=== PATIENT | female | born 1965 | race Caucasian/White ===

== ENCOUNTER 2019-07-17 17:04 | Inpatient (IN) ==
--- NOTE | 2019-07-17 17:27 | XRay Report ---
XR chest 1V portable CLINICAL HISTORY: Sepsis COMPARISON STUDY: No previous studies for comparison. FINDINGS: Minimal right upper lobe parenchymal infiltrate. Lungs otherwise appear clear. Diaphragms a re smooth. No significant cardiac enlargement. IMPRESSION: Minimal right upper lobe parenchymal infiltrate. The above report was generated using voice recognition software. It may contain grammatical, syntax or spelling errors. Electronically signed by: Frederick Ramirez M.D. 07/17/2019 5:26 PM
[2019-07-17] MEDS ORDERED: SODIUM CHLORIDE 0.9% 1000ML 1,000 ML IV ONE ×2 (18:06)
[2019-07-17 18:22] LABS: Basophils # (auto) 0.02 K/uL (0-0.2); Basophils % (auto) 0.2 %; Eosinophils # (auto) 0.01 K/uL (0-0.5); Eosinophils % (auto) 0.1 %; Hemoglobin 13.6 g/dL (12.0-16.0); Immature Granulocytes # (auto) 0.12 K/uL (0.00-0.02); Immature Granulocytes % (auto) 0.9 %; Lymphocytes # (auto) 1.15 K/uL (1.2-3.4); Mean Corpuscular Volume 94.1 fL (80-100); Mean Platelet Volume 10.2 fL (7.4-10.4); Neutrophils % (auto) 82.8 %; Platelet Count 147 K/uL (130-400); RDW Coefficient of Variation 15.2 % (11.5-14.5); RDW Standard Deviation 52.8 fL (36.4-46.3); Red Blood Count 4.25 M/uL (4.2-5.4)
[2019-07-17] MEDS ORDERED: ALBUT/IPRATROP 3MG/0.5MG NEB 3 ML VIAL NEB STA (18:33)
[2019-07-17 18:42] LABS: Albumin Level 3.5 gm/dl (3.4-5.0); BUN Creatinine Ratio 22.3 (10-20); Calcium 9.2 mg/dl (8.5-10.1); Creatinine Clr Calc Pharmacy 33.9 ml/min; Est GFR (African American) 41.5; Est GFR (Non-African American) 35.8; Potassium 5.2 mmol/L (3.5-5.1)
[2019-07-17 18:45] LABS: Albumin Globulin Ratio 0.9 (0.9-2); Bilirubin,Total 0.3 mg/dl (0.2-1); Globulin 3.9 gm/dl (2.5-4.0); Total Protein 7.4 gm/dl (6.4-8.2)
[2019-07-17] MEDS ORDERED: AZITHROMYCIN 500 MG in DEXTROSE 5% 250 ML IV ONE (19:09)
[2019-07-17] MEDS ORDERED: cefTRIAXone SODIUM 2,000 MG/70 ML BAG IV STA (19:09)
[2019-07-17] MEDS ORDERED: MoRPHine SULFATE 4 MG/ML 1 ML CARP\\VIAL IV STA (19:29)
[2019-07-17] MEDS ORDERED: ACETAMINOPHEN 325 MG TAB PO STA (19:29)
[2019-07-17] MEDS ORDERED: SODIUM CHLORIDE 0.9% 1000ML 1,000 ML IV SCH (20:45)
--- NOTE | 2019-07-17 20:53 | Emergency Department Note ---
Entered by Gretchen Lawrence acting as a scribe for Chevy Mack MD History of Present Illness General Chief complaint: Referred by Doctor Stated complaint: HEART RATE 120, SOB, DIZZY Time Seen by Provider: 07/17/19 17:11 Source: patient History of Present Illness Onset (ago): minute(s) (prior to arrival) Location: chest Pain Consistency: + other (episode) Maximum Pain Intensity: 8 Quality: + other (referral by doctor) Relieved By: + medication (Ibuprofen) Associated symptoms: + denies other symptoms (leg swelling), + cough, + fever/chills (Positive chills. Negative fever. ), + nausea/vomiting (Positive nausea. Negative vomiting. ), + shortness of breath and + other (sore throat, abdominal pain) The patient is a 53 female w/ PMHx HTN, HLD, TIA, Depression, Bipolar, Diabetes, dementia, congenital abnormality, and GERD who presents to the ED w/ CC of an episode of a referral occurring prior to arrival. The patient states that she was recently around her daughter who had pneumonia. She states that today she developed a cough and shortness of breath. She notes that she felt fine 2 days ago when she walked around the [facility] 10 hours. She reports that today though, she was short of breath even just lying on the couch. She notes that today she met with Dr. Gayle for an echo and mentioned her symptoms. She reports that he sent her here then. The patient complains of a sore throat, abdominal pain, nausea, and chills. The patient notes that she has been taking Ibuprofen with mild relief. The patient denies missing any medications, changes to her medications, leg swelling, a history of pulmonary disease, vomiting, and fever. Home Medications Home Medications Medication Instructions Recorded Confirmed Type aspirin [Aspirin Low Dose] 81 mg PO DAILY 01/29/19 07/17/19 History atorvastatin [Lipitor] 80 mg PO QAM 01/29/19 07/17/19 History cholecalciferol (vitamin D3) 2,000 unit PO QAM 01/29/19 07/17/19 History [Vitamin D3] citalopram [Celexa] 20 mg PO QAM 01/29/19 07/17/19 History gabapentin 100 mg PO BID 01/29/19 07/17/19 History glipizide 5 mg PO QAM 01/29/19 07/17/19 History lisinopril 40 mg PO QAM 01/29/19 07/17/19 History metformin 850 mg PO BID 01/29/19 07/17/19 History quetiapine [Seroquel] 50 mg PO HS 01/29/19 07/17/19 History Advair Diskus 1 puff INHALATION BID 07/17/19 07/17/19 History gabapentin 200 mg PO HS 07/17/19 07/17/19 History nicotine [Nicoderm CQ] 1 patch TRANSDERMAL DAILY 07/17/19 07/17/19 History cefdinir 300 mg PO Q12H 10 Days #20 cap 07/19/19 Rx Allergies Allergy/AdvReac Type Severity Reaction Status Date / Time sulfamethoxazole Allergy Severe Anaphylaxis Verified 07/17/19 18:25 [From Bactrim] trimethoprim [From Bactrim] Allergy Severe Anaphylaxis Verified 07/17/19 18:25 latex Allergy Intermediate LOCALIZED Verified 07/17/19 18:25 HIVES Past Med/Surg History Medical History Anemia Anxiety Bipolar disorder Blindness LEGALLY BLIND Cancer SKIN CANCER Cardiac murmur POSSIBLE Depression Diabetes mellitus, type 2 NIDDM Dysphagia BASELINE FOR 3 YEARS. NO KNOWN HISTORY OF STROKE. Facial droop BASELINE FOR 3 YEARS. NO KNOWN HISTORY OF A STROKE Fusion of spine C4-C5. FUL ROM GERD (gastroesophageal reflux disease) History of Leal's palsy History of anesthesia reaction BRONCHOSPASMS --> PATIENT WAS INTUBATED FOR SEVERAL DAYS AFTER ORIF LEFT ARM (~2017 AT [facility]) History of dementia EARLY AGE ONSET. NO MEDICATIONS. PATIENT A&O X3. Hx of congenital abnormality LEFT ARM DEFECT Hyperlipidemia Hypertension Transient ischemic attack (TIA) RECENT BRAIN MRI AND NEUROLOGIST APPOINTMENT ([facility], DR. JOSEMANUEL MIGUEL. BRAIN MRI AT [facility] 2018) Surgical History History of bilateral tubal ligation History of section X2 History of dilatation and curettage UTERINE THERMAL ABLATION History of open reduction and internal fixation (ORIF) procedure LEFT ARM History of surgery on arm MULTIPLE SURGERIES ON LEFT ARM. 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 and A total of 10 systems reviewed and were otherwise negative Physical Exam Vital Signs Vital Signs - 24 hr 07/17/19 17:07 07/17/19 17:40 07/17/19 18:42 Temperature 37.4 C Temperature Source Oral Sepsis Recent Fever Within 48 Hours No Sepsis New/Unexplained Change in Mental Status No Sepsis Action Taken by Nursing No Action Required Pulse Rate 122 H Pulse Rate [Right Finger] Pulse Rhythm [Right Finger] Pulse Strength [Right Finger] Respiratory Rate 16 20 Respiratory Effort / Characteristics Non-Labored Spontaneous Non-Labored Spontaneous Respiratory Depth Respiratory Pattern Blood Pressure 76/53 L Blood Pressure [Right Arm] Blood Pressure Mean 60 Blood Pressure Mean [Right Arm] Blood Pressure Position Sitting Pulse Oximetry 94 93 94 Oxygen Delivery Method Room Air Room Air Room Air Oxygen Flow Rate 07/17/19 19:11 07/17/19 19:20 07/17/19 19:23 Temperature Temperature Source Sepsis Recent Fever Within 48 Hours Sepsis New/Unexplained Change in Mental Status Sepsis Action Taken by Nursing Pulse Rate Pulse Rate [Right Finger] 118 H Pulse Rhythm [Right Finger] Regular Pulse Strength [Right Finger] Normal Respiratory Rate 20 Respiratory Effort / Characteristics Non-Labored Spontaneous Respiratory Depth Normal Respiratory Pattern Regular Blood Pressure Blood Pressure [Right Arm] 170/92 H Blood Pressure Mean Blood Pressure Mean [Right Arm] 118 Blood Pressure Position Pulse Oximetry 100 87 L 95 Oxygen Delivery Method Room Air Room Air Nasal Cannula Oxygen Flow Rate 2 GENERAL: Well appearing, well nourished, NAD, non-toxic. EYE EXAM: Normal conjunctiva. PERRL, no anisocoria and EOM's grossly intact w/o pain. OROPHARYNX: Moist mucous membranes. Grossly normal dentition. NECK: Supple, no nuchal rigidity, no adenopathy, non-tender. No signs of meningismus. LUNGS: Clear to auscultation. Normal chest wall mechanics. HEART: Tachycardic and regular, no MRG. ABDOMEN: Abdomen soft, non-tender, normo-active bowel sounds, no masses, no rebound or guarding. BACK: No CVA TTP. SKIN: No rashes and no bruising. UPPER EXTREMITIES: Congenital shortened left upper extremity. Contracted right upper extremity. LOWER EXTREMITIES: No pitting edema. No calf pain. Negative saqib's sign. NEURO EXAM: A&O x3, cranial nerves II-XII grossly intact, normal speech, moves all 4 extremities on command w/o issue. Course 171: Past medical records reviewed. The patient was evaluated in room B12B. A complete history and physical exam was performed. 1920: I reevaluated the patient and updated her on her test results. I discussed the treatment plan with her. She verbally agrees and understands. 1931: I discussed the patient's case with Dr. Syed Manley. He will evaluate the patient for further management. Consultations Consultation #1: I discussed the patient's case with Dr. Syed Manley. He will evaluate the patient for further management. Time: 19:32 Administered Medications Discontinued Medications Acetaminophen (Tylenol) 650 mg PO NOW STA Stop: 07/17/19 19:30 Last Admin: 07/17/19 19:37 Dose: 650 mg Documented by: [id number] Acetaminophen (Tylenol) 650 mg PO Q4H PRN PRN Reason: Pain or Fever Stop: 08/16/19 21:48 Last Admin: 07/19/19 04:04 Dose: 650 mg Documented by: [id number] Admin: 07/18/19 15:03 Dose: 650 mg Documented by: [id number] Admin: 07/18/19 07:34 Dose: 650 mg Documented by: [id number] Admin: 07/18/19 03:13 Dose: 650 mg Documented by: [id number] Albuterol (Duoneb) 6 ml NEB NOW STA Stop: 07/17/19 18:34 Last Admin: 07/17/19 18:40 Dose: 6 ml Documented by: [id number] Aspirin (Ecotrin Ectab) 81 mg PO DAILY [facility] Stop: 08/17/19 08:59 Last Admin: 07/19/19 07:43 Dose: 81 mg Documented by: [id number] Admin: 07/18/19 07:37 Dose: 81 mg Documented by: [id number] Atorvastatin Calcium ([facility]itor) [facility] [place] Stop: 08/17/19 08:59 Last Admin: 07/19/19 07:41 Dose: 80 mg Documented by: [id number] Admin: 07/18/19 07:36 Dose: 80 mg Documented by: [id number] Citalopram Hydrobromide (Celexa) 20 [facility] [place] Stop: 08/17/19 08:59 Last Admin: 07/19/19 07:42 Dose: 20 mg Documented by: [id number] Admin: 07/18/19 07:36 Dose: 20 mg Documented by: [id number] Furosemide (Lasix) 40 mg IV NOW [facility] Stop: 07/19/19 06:45 Last Admin: 07/19/19 08:25 Dose: Not Given Documented by: [id number] Gabapentin (Neurontin) 100 mg PO BID@0900,1200 [facility] Stop: 08/17/19 08:59 Last Admin: 07/19/19 12:28 Dose: 100 mg Documented by: [id number] Admin: 07/19/19 07:43 Dose: 100 mg Documented by: [id number] Admin: 07/18/19 12:06 Dose: 100 mg Documented by: [id number] Admin: 07/18/19 07:38 Dose: 100 mg Documented by: [id number] Gabapentin (Neurontin) [address] [facility] Stop: 08/16/19 22:59 Last Admin: 07/18/19 19:26 Dose: 200 mg Documented by: [id number] Admin: 07/17/19 23:00 Dose: 200 mg Documented by: [id number] Sodium Chloride (Nss 1000ml) 1,000 mls @ 999 mls/hr IV .Q1H1M ONE Stop: 07/17/19 19:06 Last Admin: 07/17/19 18:15 Dose: Not Given Documented by: [id number] Sodium Chloride (Nss 1000ml) 1,000 mls @ 999 mls/hr IV .Q1H1M ONE Stop: 07/17/19 19:06 Last Infusion: 07/17/19 19:58 Dose: 0 mls/hr Documented by: [id number] Admin: 07/17/19 18:15 Dose: 500 mls/hr Documented by: [id number] Azithromycin 500 mg/ Dextrose 255 mls @ 125 mls/hr IV ONE ONE Stop: 07/17/19 21:11 Last Infusion: 07/17/19 22:20 Dose: 0 mls/hr Documented by: [id number] Admin: 07/17/19 19:59 Dose: 125 mls/hr Documented by: [id number] Ceftriaxone Sodium (Rocephin) 2,000 mg in 70 mls @ 140 mls/hr IV NOW STA Stop: 07/17/19 19:38 Last Infusion: 07/17/19 19:58 Dose: 0 mls/hr Documented by: [id number] Admin: 07/17/19 19:23 Dose: 140 mls/hr Documented by: [id number] Sodium Chloride (Nss 1000ml) 1,000 mls @ 500 mls/hr IV .Q2H [facility] Stop: 07/17/19 22:44 Last Infusion: 07/18/19 00:15 Dose: 0 mls/hr Documented by: [id number] Admin: 07/17/19 20:54 Dose: 500 mls/hr Documented by: [id number] Sodium Chloride (Nss 1000ml) 1,000 mls @ 125 mls/hr IV .Q8H [facility] Stop: 08/16/19 21:48 Last Infusion: 07/19/19 04:10 Dose: 0 mls/hr Documented by: [id number] Infusion: 07/19/19 03:57 Dose: 0 mls/hr Documented by: [id number] Admin: 07/19/19 01:39 Dose: 125 mls/hr Documented by: [id number] Infusion: 07/19/19 01:36 Dose: 0 mls/hr Documented by: [id number] Admin: 07/18/19 13:42 Dose: 125 mls/hr Documented by: [id number] Infusion: 07/18/19 13:41 Dose: 0 mls/hr Documented by: [id number] Admin: 07/18/19 05:41 Dose: 125 mls/hr Documented by: [id number] Infusion: 07/18/19 05:41 Dose: 125 mls/hr Documented by: [id number] Admin: 07/17/19 22:47 Dose: 125 mls/hr Documented by: [id number] Doxycycline Hyclate 100 mg/ (Dextrose) 110 mls @ 50 mls/hr IV BID [facility] Stop: 07/18/19 09:01 Last Infusion: 07/18/19 09:51 Dose: 0 mls/hr Documented by: [id number] Admin: 07/18/19 07:39 Dose: 50 mls/hr Documented by: [id number] Ceftriaxone Sodium 1,000 mg/ (Dextrose) 50 mls @ 100 mls/hr IV Q24H [facility]; Protocol Stop: 07/25/19 18:59 Last Infusion: 07/18/19 19:12 Dose: 0 mls/hr Documented by: [id number] Admin: 07/18/19 18:31 Dose: 100 mls/hr Documented by: [id number] Magnesium Sulfate/Dextrose (Magnesium Sulfate / D5w) 1 gm in 100 mls @ 100 mls/hr IV ONE ONE Stop: 07/18/19 06:27 Last Infusion: 07/18/19 06:43 Dose: 0 mls/hr Documented by: [id number] Admin: 07/18/19 05:40 Dose: 100 mls/hr Documented by: [id number] Sodium Chloride (Nss 1000ml) 1,000 mls @ 999 mls/hr IV .Q1H1M ONE Stop: 07/18/19 12:37 Last Infusion: 07/18/19 13:07 Dose: 0 mls/hr Documented by: [id number] Admin: 07/18/19 12:06 Dose: 999 mls/hr Documented by: [id number] Furosemide 20 mg/ Syringe 2 mls @ 4 mls/min IV TODAY@0700 ONE Stop: 07/19/19 07:01 Last Admin: 07/19/19 07:37 Dose: 4 mls/min Documented by: [id number] Insulin Aspart (Novolog Flexpen) 0 units SC ACHS [facility] Stop: 08/16/19 22:59 Last Admin: 07/19/19 09:34 Dose: 1 units Documented by: [id number] Cosigned by: [id number] Admin: 07/18/19 20:25 Dose: 1 units Documented by: [id number] Cosigned by: [id number] Admin: 07/18/19 17:39 Dose: 5 units Documented by: [id number] Cosigned by: [id number] Admin: 07/18/19 12:05 Dose: 3 units Documented by: [id number] Cosigned by: [id number] Admin: 07/18/19 07:46 Dose: 1 units Documented by: [id number] Cosigned by: [id number] Admin: 07/17/19 23:06 Dose: 2 units Documented by: [id number] Cosigned by: [id number] Ipratropium [place] (Atrovent 0.02% 0.5mg/2.5ml) 0.5 mg INH Q4H PRN PRN Reason: SOB/WHEEZING Stop: 08/16/19 21:48 Last Admin: 07/19/19 03:57 Dose: 0.5 mg Documented by: [id number] Levalbuterol HCl (Xopenex 1.25mg/0.5ml Neb) 1.25 mg INH Q4H PRN PRN Reason: Shortness Of Breath Stop: 08/16/19 21:48 Last Admin: 07/19/19 03:57 Dose: 1.25 mg Documented by: [id number] Lisinopril (Zestril) 40 mg PO [facility] Stop: 08/17/19 08:59 Last Admin: 07/19/19 07:42 Dose: 40 mg Documented by: [id number] Admin: 07/18/19 07:37 Dose: 40 mg Documented by: [id number] Metoprolol Tartrate (Lopressor) 2.5 mg IV NOW STA Stop: 07/18/19 03:18 Last Admin: 07/18/19 03:22 Dose: 2.5 mg Documented by: [id number] Miscellaneous (Remove Nicoderm Patch) [address] ea N/[address] [facility] Stop: 08/17/19 20:59 Last Admin: 07/18/19 19:26 Dose: 1 ea Documented by: [id number] Morphine Sulfate (Morphine Sulfate) 4 mg IV NOW STA Stop: 07/17/19 19:30 Last Admin: 07/17/19 19:36 Dose: 4 mg Documented by: [id number] Nicotine (Nicoderm Cq) 21 mg TD DAILY [facility] Stop: 08/17/19 08:59 Last Admin: 07/19/19 07:43 Dose: 21 mg Documented by: [id number] Admin: 07/18/19 07:38 Dose: 21 mg Documented by: [id number] Quetiapine Fumarate (Seroquel) [address] [facility] Stop: 08/16/19 22:59 Last Admin: 07/18/19 19:26 Dose: 50 mg Documented by: [id number] Admin: 08/21/19 23:01 Dose: 50 mg Documented by: [id number] Fluticasone/Salmeterol (Advair Diskus 250/50) 1 puffs INH BID [facility] Stop: 08/16/19 22:59 Last Admin: 07/19/19 07:49 Dose: 1 puffs Documented by: [id number] Admin: 07/18/19 19:24 Dose: 1 puffs Documented by: [id number] Admin: 07/18/19 07:38 Dose: 1 puffs Documented by: [id number] Admin: 07/17/19 22:59 Dose: 1 puffs Documented by: [id number] Vitamin D (Vitamin D3) 2,000 units PO QAM [facility] Stop: 08/17/19 08:59 Last Admin: 07/19/19 07:42 Dose: 2,000 units Documented by: [id number] Admin: 07/18/19 07:37 Dose: 2,000 units Documented by: [id number] Medical Decision Making Differential Diagnosis Differential diagnoses includes but is not limited to pneumonia, bronchitis, COPD/Asthma exacerbation, pneumothorax, pulmonary embolism, congestive heart failure, acute coronary syndrome Medical Records Attestation: I reviewed the patient's medical records. Home Medications Current Medication List: was personally reviewed by me Laboratory Data Attestation: I reviewed the patient's lab results. Result diagrams: 07/19/19 07:09 07/19/19 07:09 Lab Results 07/17/19 07/17/19 07/17/19 Range/Units 17:52 18:09 18:09 WBC 12.80 H (4.8-10.8) K/uL RBC 4.25 (4.2-5.4) M/uL Hgb 13.6 (12.0-16.0) g/dL Hct 40.0 (37-47) % MCV 94.1 (80-100) fL MCH 32.0 (25-34) pg MCHC 34.0 (32-36) g/dL RDW Std Deviation 52.8 H (36.4-46.3) fL RDW Coeff of Wing 15.2 H (11.5-14.5) % Plt Count 147 (130-400) K/uL MPV 10.2 (7.4-10.4) fL Immature Gran % (Auto) 0.9 % Neut % (Auto) 82.8 % Lymph % (Auto) 9.0 % [place] % (Auto) 7.0 % Eos % (Auto) 0.1 % Baso % (Auto) 0.2 % Immature Gran # (Auto) 0.12 H (0.00-0.02) K/uL Neut # (Auto) 10.60 H (1.4-6.5) K/uL Lymph # (Auto) 1.15 L (1.2-3.4) K/uL [place] # (Auto) 0.90 H (0.11-0.59) K/uL Eos # (Auto) 0.01 (0-0.5) K/uL Baso # (Auto) 0.02 (0-0.2) K/uL PT Cancelled INR Cancelled APTT Cancelled PTT Ratio Cancelled Sodium (136-145) mmol/L Potassium (3.5-5.1) mmol/L Chloride (98-107) mmol/L Carbon Dioxide (21-32) mmol/L Anion Gap (3-11) BUN (7-18) mg/dl Creatinine (0.6-1.2) mg/dl Est Cr Clr Drug Dosing ml/min Est GFR ( Amer) Est GFR (Non-Af Amer) BUN/Creatinine Ratio (10-20) Glucose (70-99) mg/dl Lactate 1.9 (0.4-2.0) mmol/L Calcium (8.5-10.1) mg/dl Total Bilirubin (0.2-1) mg/dl AST (15-37) U/L ALT (12-78) U/L Alkaline Phosphatase (45-117) U/L Total Protein (6.4-8.2) gm/dl Albumin (3.4-5.0) gm/dl Globulin (2.5-4.0) gm/dl Albumin/Globulin Ratio (0.9-2) Procalcitonin 07/17/19 07/17/19 Range/Units 18:09 18:09 WBC (4.8-10.8) K/uL RBC (4.2-5.4) M/uL Hgb (12.0-16.0) g/dL Hct (37-47) % MCV (80-100) fL MCH (25-34) pg MCHC (32-36) g/dL RDW Std Deviation (36.4-46.3) fL RDW Coeff of Wing (11.5-14.5) % Plt Count (130-400) K/uL MPV (7.4-10.4) fL Immature Gran % (Auto) % Neut % (Auto) % Lymph % (Auto) % [place] % (Auto) % Eos % (Auto) % Baso % (Auto) % Immature Gran # (Auto) (0.00-0.02) K/uL Neut # (Auto) (1.4-6.5) K/uL Lymph # (Auto) (1.2-3.4) K/uL [place] # (Auto) (0.11-0.59) K/uL Eos # (Auto) (0-0.5) K/uL Baso # (Auto) (0-0.2) K/uL PT INR APTT PTT Ratio Sodium 135 L (136-145) mmol/L Potassium 5.2 H (3.5-5.1) mmol/L Chloride 103 (98-107) mmol/L Carbon Dioxide 24 (21-32) mmol/L Anion Gap 8.0 (3-11) BUN 37 H (7-18) mg/dl Creatinine 1.64 H (0.6-1.2) mg/dl Est Cr Clr Drug Dosing 33.9 ml/min Est GFR ( Amer) 41.5 Est GFR (Non-Af Amer) 35.8 BUN/Creatinine Ratio 22.3 H (10-20) Glucose 170 H (70-99) mg/dl Lactate (0.4-2.0) mmol/L Calcium 9.2 (8.5-10.1) mg/dl Total Bilirubin 0.3 (0.2-1) mg/dl AST 24 (15-37) U/L ALT 26 (12-78) U/L Alkaline Phosphatase 124 H (45-117) U/L Total Protein 7.4 (6.4-8.2) gm/dl Albumin 3.5 (3.4-5.0) gm/dl Globulin 3.9 (2.5-4.0) gm/dl Albumin/Globulin Ratio 0.9 (0.9-2) Procalcitonin Cancelled Imaging Data Radiologist's Impression: Radiology results as stated below per my review and the radiologist's interpretation: XR chest 1V portable CLINICAL HISTORY: Sepsis COMPARISON STUDY: No previous studies for comparison. FINDINGS: Minimal right upper lobe parenchymal infiltrate. Lungs otherwise appear clear. Diaphragms are smooth. No significant cardiac enlargement. IMPRESSION: Minimal right upper lobe parenchymal infiltrate. The above report was generated using voice recognition software. It may contain grammatical, syntax or spelling errors. Electronically signed by: Frederick Ramirez M.D. 07/17/2019 5:26 PM Blood Pressure Blood Pressure Findings: Elevated blood pressure Blood Pressure Disposition: Referred to patients primary care provider QUIANA Piedra The patient is a 53 female w/ PMHx HTN, HLD, TIA, Depression, Bipolar, Diabetes, dementia, congenital abnormality, and GERD who presents to the ED w/ CC of an episode of a referral occurring prior to arrival. Patient was seen and evaluated the bedside. The patient did present with concern for dehydration and shortness of breath. The patient had been at an outpatient cardiology appointment during which time she did have an echo completed and but had been referred there initially due to some EKG changes. The patient's echo reportedly was unremarkable per Dr. Gayle who completed it today. He did relate that the patient's IVC was fairly flat which would be consistent with some dehydration. The patient does have a history of smoking. Patient has been not smoking for approximately 1 week. The patient had been in the hospital visiting her daughter who had had pneumonia the patient does require a slight amount of oxygen. She was given a DuoNeb. The patient did have mild elevated BUN. The patient was ordered antibiotics for community-acquired pneumonia. Patient's chest x-ray does show a right upper lobe infiltrate. I did speak the on-call h ospitalist agreed to further evaluate treat the patient. Patient was admitted to the medicine service. Impression & Plan Community acquired pneumonia, Dyspnea Discharge Plan Visit Data *Final* Discharge Date/Time: 07/17/19 21:21 Chief Complaint: Referred by Doctor Stated Complaint: HEART RATE 120, SOB, DIZZY ED Provider: Chevy Mack Discharge Problem: Community acquired pneumonia, Dyspnea Patient Disposition: Admitted As Inpatient Discharge Instructions Interventions: ED Discharge Assessment Last Done: 07/17/19 21:21 The scribe's documentation has been prepared under my direction and personally reviewed by me in its entirety. I confirm that the note above accurately reflects all work, treatment, procedures, and medical decision making performed by me.
[2019-07-17] MEDS ORDERED: XOPENEX/ATROVENT 1.25mg/0.5MG NEB COMBO NEB PRN (21:49)
[2019-07-17] MEDS ORDERED: LEVALBUTEROL 1.25MG/0.5ML NEB INH PRN (21:49)
[2019-07-17] MEDS ORDERED: ONDANSETRON INJ 2 MG/ML 2 ML VIAL IV PRN (21:49)
[2019-07-17] MEDS ORDERED: IPRATROPIUM BROMIDE NEB SOLN 0.02% 2.5 ML VIAL INH PRN (21:49)
[2019-07-17] MEDS ORDERED: NITROGLYCERIN SL 0.4 MG/TAB TAB SL PRN (21:49)
[2019-07-17] MEDS: SODIUM CHLORIDE 0.9% 1000ML 1,000 ML IV SCH (22:47)
--- NOTE | 2019-07-17 22:47 | History and Physical Report ---
DATE OF ADMISSION: 07/17/2019 CHIEF COMPLAINT: Fever, dizziness. HISTORY OF PRESENT ILLNESS: This 53-year-old female with past medical history significant for type 2 diabetes, COPD, history of amputation of left arm, history of cervical disc disease, bipolar disorder, facial contracture, was sent by cardiology office because of having fever and tachycardia. The patient had some EKG changes, so she went to cardiology office today. An echo was done which was unremarkable, but she was tachycardic. The patient is having fever since yesterday and dizziness, not feeling well, and daughter was recently in the hospital with pneumonia.Daughter in the healthcare field. She says she did not feel short of breath. She is coughing up phlegm since yesterday and the coughing is causing some chest discomfort and rib pain. Currently, patient is tachycardic, heart rate in the 120s to 130s. Has some mild headache. No dizziness, no earache, no runny nose, no sore throat, no blurred visions. She has some dysphagia to meats because she has a narrowed trachea, No abdominal pain, no nausea, no vomiting, no diarrhea, no constipation, no blood in the stools. Normal bladder movements. No burning micturition or hematuria. No swelling in the legs, no rash. She lives with her .She quit smoking about a week ago and on nicotine patch. ALLERGIES: LATEX, SULFA ANTIBIOTICS. PAST MEDICAL HISTORY: As mentioned above. PAST SURGICAL HISTORY: , colonoscopy, left foot surgery, left arm surgery secondary to fracture. MEDICATIONS: The patient is on citalopram 20 mg p.o. daily, glipizide 5 mg p.o. daily in the morning, lisinopril 40 mg p.o. daily, metformin 850 mg p.o. b.i.d., nicotine patch 1 patch topically daily on the skin, Seroquel 50 mg p.o. at bedtime, Lipitor 80 mg p.o. daily, gabapentin 100 mg in the morning and afternoon and 200 mg at bedtime, vitamin D 800 units p.o. daily, aspirin 81 mg p.o. daily, Advair Diskus 250/50 mcg 1 puff b.i.d. FAMILY HISTORY: Significant for mother had breast cancer. SOCIAL HISTORY: , smokes an average of 1 pack a day for 35 years, quit smoking 1 week ago, and nicotine patch. Alcohol, socially drinks. No drug use. REVIEW OF SYSTEMS: As per HPI. Rest of the review of systems negative. PHYSICAL EXAMINATION: GENERAL: The patient is thin and frail, not in acute distress. VITAL SIGNS: Temperature 37.4, pulse 121, blood pressure 170/92, oxygen 95% on 2 liters. HEENT: No pallor, no icterus. Pupils equal, round, reactive to light. NECK: No JVD, no neck masses. Oral mucosa dry. CARDIOVASCULAR: S1, S2 heard. Tachycardia. No murmurs. RESPIRATORY SYSTEM: Normal AP diameter. No accessory muscle use. No wheezing, no crackles. ABDOMEN: Soft, bowel sounds present, nontender. No distention. CENTRAL NERVOUS SYSTEM: Cranial nerves II-XII grossly intact. Nonfocal. EXTREMITIES: No edema, no erythema. LABORATORY DATA: WBC 12.8, hemoglobin 13.6, hematocrit 40, platelets 147. Sodium 135, potassium 5.2, chloride 103, bicarbonate 24, BUN 37, creatinine 1.64, serum glucose 170. Lactate 1.9, calcium 9.2, total bilirubin 0.3, AST 24, ALT 26, alkaline phosphatase 124. IMAGING DATA: Chest x-ray shows minimal right upper lobe parenchymal infiltrate. EKG: Sinus tachycardia at a rate of 117. Possible left atrial enlargement, Q-waves in inferior leads. ASSESSMENT AND PLAN: This is a 53-year-old female who presents with fever, dizziness, tachycardia, and cough and found to have pneumonia. 1. Pneumonia with fever and cough. Chest x-ray is showing right upper lobe infiltrate. The patient is tachycardic but lactic acid is normal. We will give IV fluids. Placed on Rocephin and doxycycline. Follow the cultures. Daughter recently was in the hospital with pneumonia. We will closely monitor in the tele floor. 2. History of chronic obstructive pulmonary disease, history of tobacco abuse, quit smoking. On nicotine patch could be contributing to her tachycardia. Continue nicotine patch for now. Continue her home Advair Diskus and Xopenex nebs p.r.n. 3. History of dysphagia for meats. The patient has a narrowed trachea. Will get speech evaluation. soft diet for now. 4. History of type 2 diabetes. Hold home p.o. medications. Placed on insulin sliding scale. Follow the blood sugar. 5. History of bipolar disorder. Continue Seroquel. 6. History of hypertension. Continue lisinopril withholding parameters. 7. Deep venous thrombosis prophylaxis, sequential compression devices for now. 8. Disposition: Closely monitor in the tele floor. Level 1 full code. MTDD
[2019-07-17] MEDS: FLUTICASONE/SALMETEROL 250/50 (ADVAIR) 14 PUFF/1 INHALER INH SCH (22:59)
[2019-07-17] MEDS: GABAPENTIN 100 MG CAP PO SCH (23:00)
[2019-07-17] MEDS: QUETIAPINE FUMARATE 25 MG TABLET PO SCH (23:01)
[2019-07-17] MEDS: INSULIN ASPART 100 UNITS/ML 3 ML PEN SC SCH (23:06)
[2019-07-18] MEDS: ACETAMINOPHEN 325 MG TAB PO PRN ×3 (03:13→15:03)
[2019-07-18] MEDS ORDERED: METOPROLOL TARTRATE 1 MG/ML VIAL IV STA (03:17)
[2019-07-18 03:55] LABS: Basophils # (auto) 0.01 K/uL (0-0.2); Basophils % (auto) 0.1 %; Eosinophils # (auto) 0.01 K/uL (0-0.5); Eosinophils % (auto) 0.1 %; Hematocrit (blood only) 32.5 % (37-47); Hemoglobin 10.8 g/dL (12.0-16.0); Immature Granulocytes # (auto) 0.07 K/uL (0.00-0.02); Immature Granulocytes % (auto) 0.9 %; Lymphocytes # (auto) 0.91 K/uL (1.2-3.4); Lymphocytes % (auto) 11.4 %; Mean Corpuscular Hgb Conc 33.2 g/dL (32-36); Mean Platelet Volume 9.7 fL (7.4-10.4); Monocytes # (auto) 0.55 K/uL (0.11-0.59); Monocytes % (auto) 6.9 %; Neutrophils % (auto) 80.6 %; Platelet Count 140 K/uL (130-400); RDW Coefficient of Variation 15.5 % (11.5-14.5); RDW Standard Deviation 54.6 fL (36.4-46.3); Red Blood Count 3.42 M/uL (4.2-5.4); White Blood Count 7.95 K/uL (4.8-10.8)
[2019-07-18 04:16] LABS: BUN Creatinine Ratio 21.5 (10-20); Creatinine Clr Calc Pharmacy 51.6 ml/min; Est GFR (African American) 69.6; Est GFR (Non-African American) 60.1; Magnesium 1.7 mg/dl (1.8-2.4); Potassium 5.1 mmol/L (3.5-5.1)
[2019-07-18] MEDS ORDERED: MAGNESIUM SULFATE / D5W 1 GM/100 ML BAG IV ONE (05:28)
[2019-07-18] MEDS: SODIUM CHLORIDE 0.9% 1000ML 1,000 ML IV SCH ×2 (05:41→13:42)
[2019-07-18 07:05] LABS: Estimated Average Glucose 151 mg/dl; Hemoglobin A1C 6.9 % (4.5-5.6)
[2019-07-18] MEDS: CITALOPRAM 20 MG TAB PO SCH (07:36)
[2019-07-18] MEDS: ATORVASTATIN 40 MG TAB PO SCH (07:36)
[2019-07-18] MEDS: ASPIRIN 81 MG ECTAB PO SCH (07:37)
[2019-07-18] MEDS: CHOLECALCIFEROL 1,000 UNITS TAB PO SCH (07:37)
[2019-07-18] MEDS: LISINOPRIL 40 MG TAB PO SCH (07:37)
[2019-07-18] MEDS: GABAPENTIN 100 MG CAP PO SCH ×3 (07:38→19:26)
[2019-07-18] MEDS: NICOTINE 21 MG/24 HR TDSY TD SCH (07:38)
[2019-07-18] MEDS: FLUTICASONE/SALMETEROL 250/50 (ADVAIR) 14 PUFF/1 INHALER INH SCH ×2 (07:38→19:24)
[2019-07-18] MEDS: INSULIN ASPART 100 UNITS/ML 3 ML PEN SC SCH ×4 (07:46→20:25)
[2019-07-18] MEDS ORDERED: DOXYCYCLINE HYCLATE 100 MG in DEXTROSE 5% 100 ML IV SCH (09:00)
--- NOTE | 2019-07-18 11:31 | Hospitalist Progress Note ---
Date of Service July 18, 2019 Assessment & Plan (1) Community acquired pneumonia: ASSESSMENT AND PLAN: This is a 53-year-old female who presents with fever, dizziness, tachycardia, and cough and found to have pneumonia. 1. Pneumonia with fever and cough. Chest x-ray is showing right upper lobe infiltrate. The patient is tachycardic but lactic acid is normal. We will give IV fluids. Placed on Rocephin and doxycycline. Follow the cultures. Daughter recently was in the hospital with pneumonia. We will closely monitor in the tele floor. 2. Chronic obstructive pulmonary disease, history of tobacco abuse, quit smoking. On nicotine patch could be contributing to her tachycardia. Continue nicotine patch for now. Continue her home Advair Diskus and Xopenex nebs p.r.n. 3. Dysphagia for meats. The patient has a narrowed trachea. Will get speech evaluation. soft diet for now. 4. Type 2 diabetes. Hold home p.o. medications. Placed on insulin sliding scale. Follow the blood sugar. 5. Bipolar disorder. Continue Seroquel. 6. Hypertension. Continue lisinopril withholding parameters. 7. Deep venous thrombosis prophylaxis, sequential compression devices for now. Disposition: Closely monitor in the tele floor. Level 1 full code. ROS-No Headache, No Visual Changes, No Nausea, No Vomiting, No Fever, No Chills, No Neck Pain or Stiffness, No Chest Pain, No Palpitations, + SOB, + SOSA, + Cough, No Sputum, + Wheezing, No Abdominal Pain, No Diarrhea, No Hematemesis, No Hemoptysis, No Unexpected Weight Loss, No Flank pain, No Melena, No Hematochezia, No Frequency, No Urgency, No Burning, No Hematuria, No Rashes, No Diaphoresis. Appetite is Normal Physical Exam Gen-AAO x 3, NAD, febrile, Frail Head-NCAT, EOMI, PERRLA, Anicteric Sclera, No Posterior Pharyngeal Erythema Neck-Supple, No JVD, No Thyromegaly, No Masses, No LAD, No Bruits Lungs-+Wheezing, No Crepitus Chest-No S4, +S1, +S2, No S3, No Murmurs, No Rubs, No Gallops, No Ectopy Abdomen-Soft, Bowel Sounds Present, Non Tender, Non Distended, No Hepatomegaly, No Splenomegaly, No Palpable Masses, No Rebound, No Rigidity, No Guarding Musculoskeletal-Full Range of Motion Bilaterally, No CVAT Extremities-No Cyanosis, No Clubbing, No Edema, Absent LUE from , Contracte RUE Nuero-Cranial Nerves II-XII grossly intact, Motor WNL, DTRs WNL, Strength WNL, Non Focal Psych-Normal Mood Results & Data Vital Signs (Past 12 Hours) Vital Signs Temp Pulse Pulse Resp BP Pulse Ox 07/18/19 08:00 102 H 07/18/19 07:07 37.1 C 99 H 18 93/62 L 95 07/18/19 06:09 36.9 C 104 H 97 07/18/19 04:14 118 H 07/18/19 04:10 38.4 C H 07/18/19 03:06 39.1 C H 134 H 24 149/73 H 96 Labs checked (1) Community acquired pneumonia Laterality: right Lung location: upper lobe of lung Qualified Code(s): J18.1 - Lobar pneumonia, unspecified organism
[2019-07-18] MEDS ORDERED: SODIUM CHLORIDE 0.9% 1000ML 1,000 ML IV ONE (11:37)
[2019-07-18] MEDS ORDERED: COUGH DROP (SUGAR FREE) LOZ 24 LOZ/1 BOX BUCCAL PRN (15:38)
[2019-07-18] MEDS ORDERED: cefTRIAXone SODIUM 1,000 MG in DEXTROSE 5% 50 ML IV SCH (19:00)
[2019-07-18] MEDS: QUETIAPINE FUMARATE 25 MG TABLET PO SCH (19:26)
[2019-07-19] MEDS: SODIUM CHLORIDE 0.9% 1000ML 1,000 ML IV SCH (01:39)
[2019-07-19] MEDS: ACETAMINOPHEN 325 MG TAB PO PRN (04:04)
[2019-07-19] MEDS ORDERED: FUROSEMIDE 40 MG/4 ML VIAL IV STA (06:44)
--- NOTE | 2019-07-19 06:48 | XRay Report ---
XR chest 1V portable CLINICAL HISTORY: congestion dyspnea COMPARISON STUDY: 07/17/2019 FINDINGS: Progressive right lobe infiltrative/consolidative change. Unchanged fullness mid mediastinu m. Lungs otherwise remain clear. Slight bronchovascular prominence of the left hemithorax. Developing at electasis right base. IMPRESSION: 1. Mildly progressive right upper lobe infiltrative change. 2. Small parenchymal infiltrate right base. 3. Unchanging mid mediastinal fullness. 4. CT chest is recommended as follow-up to exclude a central obstructing process. The above report was generated using voice recognition software. It may contain grammatical, syntax or spelling errors. Electronically signed by: Frederick Ramirez M.D. 07/19/2019 6:47 AM
[2019-07-19] MEDS ORDERED: FUROSEMIDE 20 MG in SYRINGE 0 ML IV ONE (07:00)
[2019-07-19 07:34] LABS: Hematocrit (blood only) 33.4 % (37-47); Hemoglobin 10.7 g/dL (12.0-16.0); Mean Corpuscular Volume 96.5 fL (80-100); Mean Platelet Volume 10.1 fL (7.4-10.4); Platelet Count 135 K/uL (130-400); RDW Coefficient of Variation 15.6 % (11.5-14.5); RDW Standard Deviation 54.6 fL (36.4-46.3); Red Blood Count 3.46 M/uL (4.2-5.4); White Blood Count 6.34 K/uL (4.8-10.8)
[2019-07-19] MEDS: ATORVASTATIN 40 MG TAB PO SCH (07:41)
[2019-07-19] MEDS: LISINOPRIL 40 MG TAB PO SCH (07:42)
[2019-07-19] MEDS: CITALOPRAM 20 MG TAB PO SCH (07:42)
[2019-07-19] MEDS: CHOLECALCIFEROL 1,000 UNITS TAB PO SCH (07:42)
[2019-07-19] MEDS: NICOTINE 21 MG/24 HR TDSY TD SCH (07:43)
[2019-07-19] MEDS: ASPIRIN 81 MG ECTAB PO SCH (07:43)
[2019-07-19] MEDS: GABAPENTIN 100 MG CAP PO SCH ×2 (07:43→12:28)
[2019-07-19] MEDS: FLUTICASONE/SALMETEROL 250/50 (ADVAIR) 14 PUFF/1 INHALER INH SCH (07:49)
[2019-07-19 08:14] LABS: BUN Creatinine Ratio 17.9 (10-20); Calcium 8.2 mg/dl (8.5-10.1); Creatinine Clr Calc Pharmacy 55.7 ml/min; Est GFR (African American) 73.8; Est GFR (Non-African American) 63.6; Magnesium 2.2 mg/dl (1.8-2.4); Potassium 5.2 mmol/L (3.5-5.1)
[2019-07-19 08:17] LABS: Basophils # (auto) 0.01 K/uL (0-0.2); Basophils % (auto) 0.2 %; Eosinophils # (auto) 0.03 K/uL (0-0.5); Eosinophils % (auto) 0.5 %; Immature Granulocytes # (auto) 0.09 K/uL (0.00-0.02); Immature Granulocytes % (auto) 1.4 %; Lymphocytes # (auto) 0.92 K/uL (1.2-3.4); Lymphocytes % (auto) 14.5 %; Monocytes # (auto) 0.51 K/uL (0.11-0.59); Neutrophils # (auto) 4.78 K/uL (1.4-6.5); Neutrophils % (auto) 75.4 %
[2019-07-19] MEDS: INSULIN ASPART 100 UNITS/ML 3 ML PEN SC SCH (09:34)
--- NOTE | 2019-07-19 10:52 | Discharge Summary ---
Date of Service July 19, 2019 Admission HPI Per Admitting Provider This 53-year-old female with past medical history significant for type 2 diabetes, COPD, history of amputation of left arm, history of cervical disc disease, bipolar disorder, facial contracture, was sent by cardiology office because of having fever and tachycardia. The patient had some EKG changes, so she went to cardiology office today. An echo was done which was unremarkable, but she was tachycardic. The patient is having fever since yesterday and dizziness, not feeling well, and daughter was recently in the hospital with pneumonia.Daughter in the healthcare field. She says she did not feel short of breath. She is coughing up phlegm since yesterday and the coughing is causing some chest discomfort and rib pain. Currently, patient is tachycardic, heart rate in the 120s to 130s. Has some mild headache. No dizziness, no earache, no runny nose, no sore throat, no blurred visions. She has some dysphagia to meats because she has a narrowed trachea, No abdominal pain, no nausea, no vomiting, no diarrhea, no constipation, no blood in the stools. Normal bladder movements. No burning micturition or hematuria. No swelling in the legs, no rash. She lives with her .She quit smoking about a week ago and on nicotine patch. Admission Exam Per Admitting Provider PHYSICAL EXAMINATION: GENERAL: The patient is thin and frail, not in acute distress. VITAL SIGNS: Temperature 37.4, pulse 121, blood pressure 170/92, oxygen 95% on 2 liters. HEENT: No pallor, no icterus. Pupils equal, round, reactive to light. NECK: No JVD, no neck masses. Oral mucosa dry. CARDIOVASCULAR: S1, S2 heard. Tachycardia. No murmurs. RESPIRATORY SYSTEM: Normal AP diameter. No accessory muscle use. No wheezing, no crackles. ABDOMEN: Soft, bowel sounds present, nontender. No distention. CENTRAL NERVOUS SYSTEM: Cranial nerves II-XII grossly intact. Nonfocal. EXTREMITIES: No edema, no erythema. Principal Diagnosis CAP DMII DM Neuropathy HTN Dep/Anxiety Discharge Data Allergies Allergy/AdvReac Type Severity Reaction Status Date / Time sulfamethoxazole Allergy Severe Anaphylaxis Verified 07/17/19 18:25 [From Bactrim] trimethoprim [From Bactrim] Allergy Severe Anaphylaxis Verified 07/17/19 18:25 latex Allergy Intermediate LOCALIZED Verified 07/17/19 18:25 HIVES Consultations 07/17/19 19:41 ED Decision to Admit Stat Hospital Course (1) Community acquired pneumonia: ASSESSMENT AND PLAN: This is a 53-year-old female who presents with fever, dizziness, tachycardia, and cough and found to have pneumonia. 1. Pneumonia with fever and cough. Chest x-ray is showing right upper lobe infiltrate. The patient is tachycardic but lactic acid is normal. We will give IV fluids. Placed on Rocephin and doxycycline. Follow the cultures. Daughter recently was in the hospital with pneumonia. We will closely monitor in the tele floor. 2. Chronic obstructive pulmonary disease, history of tobacco abuse, quit smoking. On nicotine patch could be contributing to her tachycardia. Continue nicotine patch for now. Continue her home Advair Diskus and Xopenex nebs p.r.n. 3. Dysphagia for meats. The patient has a narrowed trachea. Will get speech evaluation. soft diet for now. 4. Type 2 diabetes. Hold home p.o. medications. Placed on insulin sliding scale. Follow the blood sugar. 5. Bipolar disorder. Continue Seroquel. 6. Hypertension. Continue lisinopril withholding parameters. 7. Deep venous thrombosis prophylaxis, sequential compression devices for now. Disposition: Closely monitor in the tele floor. Level 1 full code. ROS-No Headache, No Visual Changes, No Nausea, No Vomiting, No Fever, No Chills, No Neck Pain or Stiffness, No Chest Pain, No Palpitations, + SOB, + SOSA, + Cough, No Sputum, + Wheezing, No Abdominal Pain, No Diarrhea, No Hematemesis, No Hemoptysis, No Unexpected Weight Loss, No Flank pain, No Melena, No Hematochezia, No Frequency, No Urgency, No Burning, No Hematuria, No Rashes, No Diaphoresis. Appetite is Normal Physical Exam Gen-AAO x 3, NAD, febrile, Frail Head-NCAT, EOMI, PERRLA, Anicteric Sclera, No Posterior Pharyngeal Erythema Neck-Supple, No JVD, No Thyromegaly, No Masses, No LAD, No Bruits Lungs-+Wheezing, No Crepitus Chest-No S4, +S1, +S2, No S3, No Murmurs, No Rubs, No Gallops, No Ectopy Abdomen-Soft, Bowel Sounds Present, Non Tender, Non Distended, No Hepatomegaly, No Splenomegaly, No Palpable Masses, No Rebound, No Rigidity, No Guarding Musculoskeletal-Full Range of Motion Bilaterally, No CVAT Extremities-No Cyanosis, No Clubbing, No Edema, Absent LUE from , Contracte RUE Nuero-Cranial Nerves II-XII grossly intact, Motor WNL, DTRs WNL, Strength WNL, Non Focal Psych-Normal Mood Total Time Total Time Spent Total Time Spent (In Minutes): 50 mins Discharge Plan Discharge Items Patient Disposition: Home - Self-Care Reason For Visit: FEVER,TACHYCARDIA Discharge Diagnosis: CAP DMII DM Neuropathy HTN Dep/Anxiety Discharge Goals: Improve disease control Activity: Resume your previous activity Lifting: None and Gradually increase as tolerated Bathing: No limitations Sexual Activity: When tolerated Exercise/Sports: Gradually increase as tolerated Weightbearing: Full weightbearing Non-emergency contact: Primary Care Provider Call non-emergency contact if: you have any medication questions and your symptoms worsen Follow-up/Referrals: Ade Moctezuma DO [Primary Care Provider] - 07/24/19 1:00 pm Diet: Carb Consistent or DM2 and Heart Healthy Addtl Provider Instructions: CXR 6 weeks to f/u on Pneumonia Prescriptions: New cefdinir 300 mg capsule 300 mg PO Q12H 10 Days Qty: 20 RF: 0 Continued gabapentin 100 mg capsule 200 mg PO HS RF: 0 nicotine [Nicoderm CQ] 21 mg/24 hr Patch 24 Hour 1 patch TRANSDERMAL DAILY RF: 0 Advair Diskus 250 mcg 1 puff inhalation BID RF: 0 atorvastatin [Lipitor] 80 mg Tablet 80 mg PO QAM RF: 0 glipizide 10 mg Tablet 5 mg PO QAM RF: 0 metformin 850 mg Tablet 850 mg PO BID RF: 0 aspirin [Aspirin Low Dose] 81 mg Tablet,Delayed Release (Dr/Ec) 81 mg PO DAILY RF: 0 citalopram [Celexa] 20 mg Tablet 20 mg PO QAM RF: 0 gabapentin 100 mg Capsule 100 mg PO BID RF: 0 lisinopril 40 mg Tablet 40 mg PO QAM RF: 0 cholecalciferol (vitamin D3) [Vitamin D3] 1,000 unit Capsule 2,000 unit PO QAM RF: 0 quetiapine [Seroquel] 50 mg Tablet 50 mg PO HS RF: 0 Stand-Alone Forms: [facility] Discharge Orders: Discharge Order (Routine); Ordered 07/19/19 Ordered By: Joseph Robbins Admission Data Admit Date/Time: 07/17/19 20:33 Attending Provider: Joseph Robbins Admit Provider: Prabhu Severino Primary Care Provider: Ade Moctezuma Other Providers: Prabhu Severino Service: Telemetry
== END 2019-07-19 13:30 | disposition home or self-care (01) | DRG 195 ==
LOC: ED 17:04 → 2S 20:33

== ENCOUNTER 2020-10-14 10:04 | Inpatient (IN) ==
[2020-10-14] MEDS ORDERED: SODIUM CHLORIDE 0.9% 1000ML 1,000 ML IV SCH (10:30)
[2020-10-14] MEDS ORDERED: SODIUM CHLORIDE 0.9% 500 ML IV SCH (10:30)
--- NOTE | 2020-10-14 11:00 | XRay Report ---
XR chest 1V portable CLINICAL HISTORY: weakness COMPARISON STUDY: Chest radiograph July 19, 2019. FINDINGS: Incidental note is made of an anterior cervical spine fusion. Patient is mildly rotated. Le ft humeral head appears slightly dysmorphic. Bilateral pleural densities are noted. There are bibasil ar opacities and mild asymmetric left lung opacity. Mild cardiomegaly is noted without evidence for p ulmonary edema. IMPRESSION: 1. Bibasilar opacities that could reflect an infectious process or atelectasis. Radiographic follow-u p is recommended. 2. Bilateral pleural densities which favor extrapleural fat however small bilateral pleural effusions could appear similar. ACT 112: Negative or not required by law. Electronically signed by: Lul Xie M.D. 10/14/2020 10:59 AM
[2020-10-14 11:49] LABS: Appearance Urine Cloudy (Clear); Bacteria Urine Automated 4+ (Negative); Bilirubin Urine Negative (Negative); Blood Urine 1+ (Negative); Color Urine Yellow; Glucose Urine UA Negative (Negative); Ketones Urine Trace (Negative); Leukocyte Esterase Urine 2+ (Negative); Nitrite Urine Negative (Negative); Protein Urine 2+ (Negative); RBC Urine Automated 0-4 /hpf (0-4); Urobilinogen Urine Negative (Negative); WBC Urine Automated >30 /hpf (0-5)
--- NOTE | 2020-10-14 12:21 | Electrocardiogram Report ---
Test Reason : Blood Pressure : / mmHG Vent. Rate : 151 BPM Atrial Rate : 102 BPM P-R Int : 182 ms QRS Dur : 082 ms QT Int : 334 ms P-R-T Axes : 045 -36 063 degrees QTc Int : 529 ms Sinus tachycardia Left axis deviation Possible Anterolateral infarct (cited on or before 17-JUL-2019) Abnormal ECG When compared with ECG of 17-JUL-2019 17:21, Questionable change in initial forces of Lateral leads Confirmed by William Joseph ([id number]) on 10/14/2020 12:21:15 PM Referred By: REFERRED SELF Confirmed By:William Joseph
--- NOTE | 2020-10-14 13:09 | CT Scan Report ---
CT head/brain wo con CLINICAL HISTORY: 55 years-old Female with AMS. Acutely altered mental status TECHNIQUE: Multiple axial CT images of the head were obtained without contrast. A dose lowering tech nique was utilized adhering to the principles of ALARA. CT DOSE: 921.40 mGy.cm COMPARISON: None. FINDINGS: No acute intracranial hemorrhage, midline shift, intracranial mass, hydrocephalus, territorial ischem ia or abnormal extra-axial collection. Mildly motion degraded exam. Cerebral vascular calcifications. The calvarium is intact. Right mastoid air cells are clear. Trace left mastoid effusion. Minimal muc osal thickening of the nasal sinuses. Soft tissues and orbits are unremarkable. IMPRESSION: No acute intracranial abnormality or calvarial fracture. ACT 112: Negative or not required by law. The above report was generated using voice recognition software. It may contain grammatical, syntax o r spelling errors. Electronically signed by: Robbie Chang M.D. 10/14/2020 1:08 PM
[2020-10-14] MEDS ORDERED: cefTRIAXone SODIUM 1,000 MG/50 ML BAG IV STA (14:08)
[2020-10-14 14:20] LABS: Basophils # (auto) 0.02 K/uL (0-0.2); Basophils % (auto) 0.2 %; Eosinophils # (auto) 0.06 K/uL (0-0.5); Eosinophils % (auto) 0.5 %; Hemoglobin 10.6 g/dL (12.0-16.0); Immature Granulocytes # (auto) 0.14 K/uL (0.00-0.02); Immature Granulocytes % (auto) 1.2 %; Lymphocytes # (auto) 1.28 K/uL (1.2-3.4); Lymphocytes % (auto) 10.7 %; Mean Corpuscular Hgb Conc 30.3 g/dL (32-36); Mean Corpuscular Volume 105.7 fL (80-100); Mean Platelet Volume 10.9 fL (7.4-10.4); Monocytes # (auto) 0.99 K/uL (0.11-0.59); Monocytes % (auto) 8.3 %; Neutrophils # (auto) 9.43 K/uL (1.4-6.5); Neutrophils % (auto) 79.1 %; Platelet Count 210 K/uL (130-400); RDW Coefficient of Variation 15.4 % (11.5-14.5); RDW Standard Deviation 60.2 fL (36.4-46.3); Red Blood Count 3.31 M/uL (4.2-5.4); White Blood Count 11.92 K/uL (4.8-10.8)
[2020-10-14 14:41] LABS: Albumin Globulin Ratio 0.9 (0.9-2); Albumin Level 3.2 gm/dl (3.4-5.0); BUN Creatinine Ratio 21.4 (10-20); Bilirubin,Total 0.3 mg/dl (0.2-1); Calcium 8.1 mg/dl (8.5-10.1); Creatinine Clr Calc Pharmacy 9.4 ml/min; Est GFR (African American) 9.1; Est GFR (Non-African American) 7.9; Globulin 3.5 gm/dl (2.5-4.0); Magnesium 2.2 mg/dl (1.8-2.4); Potassium 8.1 mmol/L (3.5-5.1); Total Protein 6.7 gm/dl (6.4-8.2)
[2020-10-14] MEDS ORDERED: CALCIUM GLUCONATE 1,000 MG/60 ML BAG IV STA (14:43)
[2020-10-14] MEDS ORDERED: NovoLIN-R INSULIN PER UNIT CHARGE IV STA (14:43)
[2020-10-14] MEDS ORDERED: DEXTROSE 50% 50 ML SYRINGE IV ONE ×2 (14:43→20:15)
[2020-10-14] MEDS ORDERED: SODIUM CHLORIDE 0.9% 500 ML IV ONE (14:46)
[2020-10-14 14:47] LABS: Thyroid Stimulating Hormone 0.557 uIu/ml (0.300-4.500)
[2020-10-14 15:16] LABS: Partial Thromboplastin Ratio 1.1; Prothrombin Time 10.4 Seconds (9.0-12.0)
[2020-10-14] MEDS ORDERED: SODIUM CHLORIDE 0.9% 1000ML 2,000 ML IV ONE (16:02)
[2020-10-14] MEDS ORDERED: SODIUM POLYSTYRENE SULFONATE 15G/60ML SUSP PO STA ×2 (16:03→19:35)
--- NOTE | 2020-10-14 16:05 | CT Scan Report ---
ABDOMEN AND PELVIS CT WITHOUT CONTRAST CT DOSE: 294.88 mGy.cm HISTORY: Acute renal failure with urinary tract infection ARF, obstruction, UTI TECHNIQUE: Multiaxial CT images of the abdomen and pelvis were performed without contrast. A dose lo wering technique was utilized adhering to the principles of ALARA. COMPARISON STUDY: None. FINDINGS: Trace right pleural effusion with right greater than left bibasilar linear consolidation. Mild right hemidiaphragmatic elevation. No pneumatosis or pneumoperitoneum. Cardiomegaly with trace pericardial effusion. Coronary artery calcifications. The unenhanced spleen, mildly atrophic pancreas, adrenal gl ands, gallbladder and unenhanced liver appear unremarkable. Nonspecific mild to moderate bilateral perinephric stranding. lobulations of the kidneys. No re nal or ureteral calculi or obstructive uropathy. Ureters are within normal limits. Urinary bladder wa ll thickening with partial distention. Mild perivesicular stranding. The prostate measures Limits of normal in size. Calcified plaque of the abdominal aorta without aneurysm. No adenopathy. No bowel obstruction or bowel wall thickening. Colonic diverticulosis. Terminal ileum and appendix are unremarkable. Tiny fat filled infraumbilical ventral abdominal wall hernia, diastases of 2.7 cm. Inde terminate likely benign 2 mm calcification of the midline anterior pelvis. Unremarkable soft tissues. Degenerative changes of the spine, pelvis and hips. No acute fracture. Probable bone island of the r ight femoral head. IMPRESSION: 1. No urolith or obstructive uropathy. 2. Partial distention of the urinary bladder with mild wall thickening and perivesicular stranding. C orrelate with urinalysis. 3. No bowel obstruction or bowel wall thickening. Normal appendix. 4. Trace right pleural effusion with asymmetric right lung base opacities, likely atelectatic. Pneumo nitis could appear similarly. 5. Additional findings as above. ACT 112: Negative or not required by law. The above report was generated using voice recognition software. It may contain grammatical, syntax o r spelling errors. Electronically signed by: Robbie Chang M.D. 10/14/2020 4:04 PM
[2020-10-14] MEDS ORDERED: SODIUM BICARB 8.4% INJ 50 MEQ/50 ML SYR IV STA ×2 (16:10→20:11)
--- NOTE | 2020-10-14 16:27 | History & Physical Report ---
Date of Service October 14, 2020 Assessment & Plan (1) Acute hyperkalemia: Initial potassium in the ED 8.1 - Given calcium gluconate, insulin, glucose - Spoke with critical care attending who accepted pt to ICU - added Kayexalate po x 1 dose, 2 amps of bicarb - Consult nephrology - may need to consider urgent dialysis - Monitor on telemetry - Repeat EKG in AM (2) Acute renal failure: Suspect related to dehydration as pt reports no oral intake for at least two days (although unsure how reliable of a historian that pt is at present) - NSS x 2 liters bolus then maintenance fluids - Repeat BMP Q6 hrs until labs improving/stabilized - Nephro consult as above - Check serum and urine osmolality (3) Acute dehydration: Related to lack of oral intake. Spoke to PCP who states pt does not always maintain her oral intake at home - has developed mild creatinine elevations previously due to dehydration/use of furosemide (which has since been discontinued) (4) UTI (urinary tract infection): Abnormal UA in ED - culture pending - Will continue empiric ceftriaxone started in the ED (5) COPD (chronic obstructive pulmonary disease): Chest x-ray with bibasilar opacities but pt without significant cough. She is mildly tachypneic in the ED with O2 sats on room air 90-94% when evaluated. COVID test was negative. - Check procalcitonin - if elevated, consider broadening antibiotic coverage - Continue Advair. Will add nebs if worsening respiratory status. (6) Diabetes mellitus, type 2: - Pharm consult for glycemic management - Check A1C in AM (7) Bipolar disorder: - Continue outpatient meds Pt seen and reviewed with collaborating physician, Dr. Egan. Plan of care discussed and as outlined above. Case discussed with student advisor and appreciate their input. Later in the day, I was finally able to reach pt's daughter, Katt Figueroa, who assisted with the history (she can be reached at [phone]). I updated her on the pt's condition and anticipated plan of care. All questions were answered. She states that pt does not have a living will nor a POA. However, in the event that patient is unable to make decisions, the daughter states that the pt's would defer to her as the daughter as he prefers to avoid those types of decisions. I did not speak to the . Naty states that they will be back in the area on Monday as they are cutting their trip short. Mitch Steinberg PA-C History of Present Illness Chief Complaint: Hyperkalemia, SHAWNA, Confusion Primary Care Provider: Ade Moctezuma DO This is a 55 y/o female with a PMH of DM2 with diabetic retinopathy, COPD, Bipolar Disorder, hx multiple non-melanoma skin cancer, and bilateral UE conge nital deformities with at least one prior surgery on the LUE who presents from home via EMS with weakness and confusion. History from the patient is extremely limited due to altered mental status so history obtained from ED provider, medical record, and from speaking with the pt's PCP. I also attempted to reach the daughter but call went immediately to a generic voicemail. Pt has a history of congenital deformities of bilateral UE so she requires a caregiver to assist with her ADLs. The pt's daughter is her caregiver Mon-Mon 7a-3pm. assists with her care the rest of the time. The family left on Monday for a trip with pt's [id number] who has terminal cancer. The pt's neighbor has been checking on her 2-3 times per day and apparently taking her out to eat. Yesterday they noted that they patient seem off and was not eating much. They called pt's daughter who thought that pt was simply tired. Today, they went to check on the pt and found her sitting in the same chair and position that she was when they left yesterday and she seemed more confused so they called EMS. Initially in the ED, labs were difficult to obtain and pt ultimately required an EJ placement for a line. Labs revealed SHAWNA with a BUN of 121 and creatinine of 5.68, potassium of 8.1 so pt was given calcium gluconate, insulin/glucose, and IVF. Initial UA concerning for UTI so pt started on ceftriaxone. Pt's daughter reports that her mental status has been declining over the past two months. They have noted increased confusion, frequent blank starts, seeming inability to comprehend questions, and abnormal facial movements at times. Pt has apparently not been evaluated for these. Appetite over the past few months has been decreasing with pt often only eating a small amount once a day. She does not drink much water, preferring to drink coffee. Allergies Allergy/AdvReac Type Severity Reaction Status Date / Time sulfamethoxazole Allergy Severe Anaphylaxis Verified 10/14/20 11:12 [From Bactrim] trimethoprim [From Bactrim] Allergy Severe Anaphylaxis Verified 10/14/20 11:12 latex Allergy Intermediate LOCALIZED Verified 10/14/20 11:12 HIVES Home Medications Medication Instructions Recorded Confirmed Type aspirin [Aspirin Low Dose] 81 mg PO QAM 01/29/19 10/14/20 History atorvastatin [Lipitor] 80 mg PO QAM 01/29/19 10/14/20 History cholecalciferol (vitamin D3) 2,000 unit PO QAM 01/29/19 10/14/20 History [Vitamin D3] citalopram [Celexa] 20 mg PO QAM 01/29/19 10/14/20 History gabapentin 100 - 200 mg PO TID 01/29/19 10/14/20 History glipizide 5 mg PO QAM 01/29/19 10/14/20 History lisinopril 40 mg PO QAM 01/29/19 10/14/20 History metformin 850 mg PO BID 01/29/19 10/14/20 History quetiapine [Seroquel] 50 mg PO HS 01/29/19 10/14/20 History nicotine [Nicoderm CQ] 1 patch TRANSDERMAL DAILY 07/17/19 10/14/20 History fluticasone propion-salmeterol 1 puff INHALATION BID 10/14/20 10/14/20 History [Advair HFA] Past Med/Surg History Medical History (Updated 10/14/20 @ 19:12 by Margareth Steinberg PA-C) Anemia Anxiety Bipolar disorder Blindness LEGALLY BLIND Cancer SKIN CANCER Cardiac murmur POSSIBLE COPD (chronic obstructive pulmonary disease) Depression Diabetes mellitus, type 2 NIDDM Dysphagia BASELINE FOR 3 YEARS. NO KNOWN HISTORY OF STROKE. Facial droop BASELINE FOR 3 YEARS. NO KNOWN HISTORY OF A STROKE Fusion of spine C4-C5. FUL ROM GERD (gastroesophageal reflux disease) History of anesthesia reaction BRONCHOSPASMS --> PATIENT WAS INTUBATED FOR SEVERAL DAYS AFTER ORIF LEFT ARM (~2017 AT [facility]) History of Leal's palsy History of dementia EARLY AGE ONSET. NO MEDICATIONS. PATIENT A&O X3. Hx of congenital abnormality LEFT ARM DEFECT Hyperlipidemia Hypertension Transient ischemic attack (TIA) RECENT BRAIN MRI AND NEUROLOGIST APPOINTMENT ([facility], DR. JOSEMANUEL MIGUEL. BRAIN MRI AT [facility] 2018) Surgical History History of bilateral tubal ligation History of section X2 History of dilatation and curettage UTERINE THERMAL ABLATION History of open reduction and internal fixation (ORIF) procedure LEFT ARM History of surgery on arm MULTIPLE SURGERIES ON LEFT ARM. 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: No Beliefs That Will Affect Care: None marital status: Current Living Situation: Spouse Other Information That Helps Us Care for You: No Feels Safe at Home: Yes Safety Concerns: Feels Safe At This Time Assistive Devices: None Review of Systems Review of Systems: Unable to obtain due to confusion Physical Exam Constitutional: + altered mental status and + disheveled; no acute distress Eyes: + anicteric sclerae Neck: trachea midline Respiratory: + tachypneic (mild); no respiratory distress and does not use accessory muscles Auscultation: + diminished lung sounds Cardiovascular: Rate/Rhythm: regular rate and + tachycardic Heart Sounds: + murmur Vessels: radial pulses present Extremities: no pedal edema Gastrointestinal (Abdomen): Inspection/Auscultation: normal bowel sounds; abdomen not distended Percussion/Palpation: abdomen soft Musculoskeletal: Head/Neck/Chest: normocephalic, head atraumatic and neck supple right upper extremity with congenital deformity and contracture, left upper extremity congenital deformity with shortening Skin: no rashes, warm and dry Neurologic: Limited ability to answer questions - very slow to speak, seems to have some difficulty recalling recent events. Is oriented x 3. Results & Data Results & Data ([facility]) Vital Signs (Past 12 Hours) Vital Signs Temp Pulse Resp BP Pulse Ox 10/14/20 16:02 107 H 20 101/58 L 94 10/14/20 16:00 106 H 20 93 10/14/20 15:31 108 H 22 91 10/14/20 15:30 108 H 20 112/62 93 10/14/20 15:00 107 H 22 108/69 94 10/14/20 14:30 105 H 22 116/59 L 94 10/14/20 14:00 107 H 20 127/68 91 10/14/20 13:30 106 H 20 93/66 L 94 10/14/20 13:00 108 H 22 115/69 91 10/14/20 12:30 108 H 22 115/63 93 10/14/20 12:01 101 H 20 94 10/14/20 12:00 97 H 20 135/73 95 10/14/20 11:30 101 H 20 105/49 L 92 10/14/20 11:27 100 H 22 106/59 L 93 10/14/20 10:30 101 H 22 95/64 L 94 10/14/20 10:26 94 10/14/20 10:11 37 C 102 H 18 104/46 L 98 Laboratory Results Laboratory Results - last 24 hr 10/14/20 10/14/20 10/14/20 10:30 10:30 11:15 WBC RBC Hgb Hct MCV MCH MCHC RDW Std Deviation RDW Coeff of Wing Plt Count MPV Immature Gran % (Auto) Neut % (Auto) Lymph % (Auto) [place] % (Auto) Eos % (Auto) Baso % (Auto) Neut # (Auto) Lymph # (Auto) [place] # (Auto) Eos # (Auto) Baso # (Auto) Immature Gran # (Auto) PT INR APTT PTT Ratio Sodium Potassium Chloride Carbon Dioxide Anion Gap BUN Creatinine Est Cr Clr Drug Dosing Est GFR ( Amer) Est GFR (Non-Af Amer) BUN/Creatinine Ratio Glucose Osmolality Lactate Calcium Magnesium Total Bilirubin AST ALT Alkaline Phosphatase Total Protein Albumin Globulin Albumin/Globulin Ratio TSH Urine Color Yellow Urine Appearance Cloudy A Urine pH 5.0 Ur Specific [place] 1.020 Urine Protein 2+ H Urine Glucose (UA) Negative Urine Ketones Trace H Urine Blood 1+ H Urine Nitrite Negative Urine Bilirubin Negative Urine Urobilinogen Negative Ur Leukocyte Esterase 2+ H Urine WBC (Auto) >30 H Urine RBC (Auto) 0-4 U Hyaline Cast (Auto) 1-5 U Epithel Cells (Auto) 5-10 H Urine Bacteria (Auto) 4+ H Urine Osmolality COVID-19 Eval Order Covid19 IDNow atMRIC SARS-CoV-2, RNA, NAAT NEGATIVE 10/14/20 10/14/20 10/14/20 11:15 11:15 14:02 WBC RBC Hgb Hct MCV MCH MCHC RDW Std Deviation RDW Coeff of Wing Plt Count MPV Immature Gran % (Auto) Neut % (Auto) Lymph % (Auto) [place] % (Auto) Eos % (Auto) Baso % (Auto) Neut # (Auto) Lymph # (Auto) [place] # (Auto) Eos # (Auto) Baso # (Auto) Immature Gran # (Auto) PT INR APTT PTT Ratio Sodium 139 Potassium 8.1 H* Chloride 118 H Carbon Dioxide 14 L Anion Gap 7.0 BUN 121 H Creatinine 5.68 H* Est Cr Clr Drug Dosing 9.4 Est GFR ( Amer) 9.1 Est GFR (Non-Af Amer) 7.9 BUN/Creatinine Ratio 21.4 H Glucose 81 Osmolality Pending Lactate Calcium 8.1 L Magnesium 2.2 Total Bilirubin 0.3 AST 19 ALT 26 Alkaline Phosphatase 97 Total Protein 6.7 Albumin 3.2 L Globulin 3.5 Albumin/Globulin Ratio 0.9 TSH 0.557 Urine Color Urine Appearance Urine pH Ur Specific [place] Urine Protein Urine Glucose (UA) Urine Ketones Urine Blood Urine Nitrite Urine Bilirubin Urine Urobilinogen Ur Leukocyte Esterase Urine WBC (Auto) Urine RBC (Auto) U Hyaline Cast (Auto) U Epithel Cells (Auto) Urine Bacteria (Auto) Urine Osmolality 344 L COVID-19 Eval Order SARS-CoV-2, RNA, NAAT 10/14/20 10/14/20 10/14/20 14:02 14:04 14:08 WBC 11.92 H RBC 3.31 L Hgb 10.6 L Hct 35.0 L MCV 105.7 H MCH 32.0 MCHC 30.3 L RDW Std Deviation 60.2 H RDW Coeff of Wing 15.4 H Plt Count 210 MPV 10.9 H Immature Gran % (Auto) 1.2 Neut % (Auto) 79.1 Lymph % (Auto) 10.7 [place] % (Auto) 8.3 Eos % (Auto) 0.5 Baso % (Auto) 0.2 Neut # (Auto) 9.43 H Lymph # (Auto) 1.28 [place] # (Auto) 0.99 H Eos # (Auto) 0.06 Baso # (Auto) 0.02 Immature Gran # (Auto) 0.14 H PT 10.4 INR 1.0 APTT 31.0 PTT Ratio 1.1 Sodium Potassium Chloride Carbon Dioxide Anion Gap BUN Creatinine Est Cr Clr Drug Dosing Est GFR ( Amer) Est GFR (Non-Af Amer) BUN/Creatinine Ratio Glucose Osmolality Lactate 0.5 Calcium Magnesium Total Bilirubin AST ALT Alkaline Phosphatase Total Protein Albumin Globulin Albumin/Globulin Ratio TSH Urine Color Urine Appearance Urine pH Ur Specific [place] Urine Protein Urine Glucose (UA) Urine Ketones Urine Blood Urine Nitrite Urine Bilirubin Urine Urobilinogen Ur Leukocyte Esterase Urine WBC (Auto) Urine RBC (Auto) U Hyaline Cast (Auto) U Epithel Cells (Auto) Urine Bacteria (Auto) Urine Osmolality COVID-19 Eval Order SARS-CoV-2, RNA, NAAT Diagnostic Findings Chest X-ray 10/14/20 - IMPRESSION: 1. Bibasilar opacities that could reflect an infectious process or atelectasis. Radiographic follow-up is recommended. 2. Bilateral pleural densities which favor extrapleural fat however small bilateral pleural effusions could appear similar. Head CT 10/14/20 - IMPRESSION: No acute intracranial abnormality or calvarial fracture. Abd/Pel CT 10/14/20 - IMPRESSION: 1. No urolith or obstructive uropathy. 2. Partial distention of the urinary bladder with mild wall thickening and perivesicular stranding. Correlate with urinalysis. 3. No bowel obstruction or bowel wall thickening. Normal appendix. 4. Trace right pleural effusion with asymmetric right lung base opacities, likely atelectatic. Pneumonitis could appear similarly. 5. Additional findings as above. Medications Administered Sodium Chloride (Nss 1000ml) 1,000 mls @ 125 mls/hr IV .Q8H ALMA Stop: 10/14/20 18:29 Last Admin: 10/14/20 12:20 Dose: 125 mls/hr Documented by: [id number] Sodium Chloride (Nss 1000ml) 2,000 mls @ 999 mls/hr IV .Q2H1M ONE Stop: 10/14/20 18:02 Last Admin: 10/14/20 16:23 Dose: 999 mls/hr Documented by: [id number] Discontinued Medications Dextrose (Dextrose 50% 50 Ml Syringe) 50 ml IV NOW ONE Stop: 10/14/20 14:44 Last Admin: 10/14/20 15:57 Dose: 50 ml Documented by: [id number] Sodium Chloride (Nss) 500 mls @ 999 mls/hr IV .Q31M ALMA Stop: 10/14/20 11:00 Last Infusion: 10/14/20 11:49 Dose: 0 mls/hr Documented by: [id number] Admin: 10/14/20 11:14 Dose: 999 mls/hr Documented by: [id number] Ceftriaxone Sodium (Rocephin) 1,000 mg in 50 mls @ 100 mls/hr IV NOW STA Stop: 10/14/20 14:37 Last Infusion: 10/14/20 14:59 Dose: 0 mls/hr Documented by: [id number] Admin: 10/14/20 14:25 Dose: 100 mls/hr Documented by: [id number] Calcium Gluconate () 1,000 mg in 60 mls @ 240 mls/hr IV NOW STA Stop: 10/14/20 14:57 Last Infusion: 10/14/20 16:23 Dose: 0 mls/hr Documented by: [id number] Admin: 10/14/20 15:57 Dose: 240 mls/hr Documented by: [id number] Sodium Chloride (Nss) 500 mls @ 999 mls/hr IV .Q31M ONE Stop: 10/14/20 15:16 Last Infusion: 10/14/20 16:35 Dose: 0 mls/hr Documented by: [id number] Admin: 10/14/20 15:57 Dose: 999 mls/hr Documented by: [id number] Insulin Human Regular (Novolin-R Insulin Per Unit Charge) 10 units IV NOW STA Stop: 10/14/20 14:44 Last Admin: 10/14/20 15:56 Dose: 10 units Documented by: [id number] Cosigned by: [id number] Sodium Bicarbonate (Sodium Bicarb 8.4% Inj 50 Meq/50 Ml Syr) 100 meq IV NOW STA Stop: 10/14/20 16:11 Last Admin: 10/14/20 16:27 Dose: 100 meq Documented by: [id number] Code Status & VTE Plan VTE Prophylaxis Plan VTE Prophylaxis will be ordered: Yes Supervising Physician Co-Signing Physician Notes Patient is a 55-year-old female with history of diabetes, COPD, bipolar disorder and other medical problems presents with history of altered mental status, generalized weakness. Poor historian. Most of the history is obtained from old records, ER physician, patient's family and primary care physician. Patient was oriented to herself, place, year, home address and date of during my encounter. Please review HPI for complete details of presentation. CT head showed no acute intracranial abnormality. Patient was noted to have mild leukocytosis, chronic anemia, hyperkalemia at 8.1, SHAWNA 5.68, normal procalcitoni n, lactate levels, metabolic acidosis with bicarbonate levels 14. UA suggestive of possible UTI. Chest x-ray showed bilateral opacities which could reflect infectious process or atelectasis. Patient admits to have intermittent confusion. On exam patient is disheveled, no apparent distress, normocephalic atraumatic, lungs are clear to auscultation, dry oral mucosa, EOMI, S1-S2,+ systolic murmur, no pedal edema, bilateral upper extremity deformities--congenital as per patient, grossly no focal neurologic deficits. Patient is admitted for management of acute metabolic encephalopathy, hyperka lemia, acute kidney injury, metabolic acidosis, urinary tract infection. Discussed with student advisor on-call and plan to be admitted in ICU. Received insulin, glucose, calcium gluconate, Kayexalate while in ED. Agree with aggressive IV fluids. Also agree with holding Metformin, lisinopril and avoid any nephrotoxic agents. Nephrology consulted for possible dialysis. Agree with starting Rocephin for possible UTI. Urine, blood cultures obtained. IV bicarbonate for severe metabolic acidosis. Monitor BMP closely every 6 hours. Further management as per the student advisor. I personally reviewed the record. Patient is interviewed and examined at bedside. Patient's care is coordinated with Margareth Steinberg PA-C. Please refer to the documentation above for details of patient's presentation and for discussion of other issues. (1) UTI (urinary tract infection) Hematuria presence: without hematuria Urinary tract infection type: acute cystitis Qualified Code(s): N30.00 - Acute cystitis without hematuria (2) Acute renal failure Acute renal failure type: unspecified Qualified Code(s): N17.9 - Acute kidney failure, unspecified (3) Diabetes mellitus, type 2 Diabetes mellitus complication detail: with diabetic retinopathy Diabetes mellitus complication status: with ophthalmic complications Diabetes mellitus mcc insulin use: without blender laborer use Diabetes mellitus macular edema: without macular edema Diabetic retinopathy severity: with unspecified retinopathy severity Laterality: unspecified laterality Qualified Code(s): E11.319 - Type 2 diabetes mellitus with unspecified diabetic retinopathy without macular edema (4) COPD (chronic obstructive pulmonary disease) COPD type: unspecified COPD Qualified Code(s): J44.9 - Chronic obstructive pulmonary disease, unspecified
[2020-10-14] MEDS ORDERED: PHARMACY GLYCEMIC MGMT CONSULT STA (16:54)
--- NOTE | 2020-10-14 16:58 | Emergency Department Note ---
History of Present Illness General Chief complaint: Illness Stated complaint: LETHARGIC/DIZZY Time Seen by Provider: 10/14/20 10:11 Source: patient, family (Daughter by phone), EMS and RN notes reviewed Mode of arrival: EMS Limitations: altered mental status (Somnolent, minimally responsive) History of Present Illness Provider complaint: Weakness, sitting in the same chair x24 hours This patient is a 55-year-old female who presents to the emergency department with complaints by a neighbor that she has not changed positions in 24 hours. The patient has some chronic medical conditions and she does rely on some in- home care however family states she is generally able to dress herself, perform ADLs and feed herself. Apparently her daughter is her primary caregiver however she needed to leave for the last several days as her grandfather was diagnosed with terminal cancer. The patient's neighbor has been "looking after" the patient and yesterday took her to the grocery store. The patient was left in her reclining chair and had eaten lunch. There was no indication of illness according to the daughter by phone. The patient answers some questions and states she did not have anything to eat or drink since yesterday. She denies any nausea, vomiting or shortness of breath. She denies any known Covid exposures. 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 Home Medications Medication Instructions Recorded Confirmed Type aspirin [Aspirin Low Dose] 81 mg PO QAM 01/29/19 10/14/20 History atorvastatin [Lipitor] 80 mg PO QAM 01/29/19 10/14/20 History cholecalciferol (vitamin D3) 2,000 unit PO QAM 01/29/19 10/14/20 History [Vitamin D3] citalopram [Celexa] 20 mg PO QAM 01/29/19 10/14/20 History gabapentin 100 - 200 mg PO TID 01/29/19 10/14/20 History glipizide 5 mg PO QAM 01/29/19 10/14/20 History lisinopril 40 mg PO QAM 01/29/19 10/14/20 History metformin 850 mg PO BID 01/29/19 10/14/20 History quetiapine [Seroquel] 50 mg PO HS 01/29/19 10/14/20 History nicotine [Nicoderm CQ] 1 patch TRANSDERMAL DAILY 07/17/19 10/14/20 History Advair HFA 1 puff INHALATION BID 10/14/20 10/14/20 History Allergies Allergy/AdvReac Type Severity Reaction Status Date / Time sulfamethoxazole Allergy Severe Anaphylaxis Verified 10/14/20 11:12 [From Bactrim] trimethoprim [From Bactrim] Allergy Severe Anaphylaxis Verified 10/14/20 11:12 latex Allergy Intermediate LOCALIZED Verified 10/14/20 11:12 HIVES Past Med/Surg History Medical History (Updated 10/14/20 @ 21:21 by ALEJANDRO Juarez) Anemia Anxiety Bipolar disorder Blindness LEGALLY BLIND Cancer SKIN CANCER Cardiac murmur POSSIBLE COPD (chronic obstructive pulmonary disease) Depression Diabetes mellitus, type 2 NIDDM Dysphagia BASELINE FOR 3 YEARS. NO KNOWN HISTORY OF STROKE. Facial droop BASELINE FOR 3 YEARS. NO KNOWN HISTORY OF A STROKE Fusion of spine C4-C5. FUL ROM GERD (gastroesophageal reflux disease) History of anesthesia reaction BRONCHOSPASMS --> PATIENT WAS INTUBATED FOR SEVERAL DAYS AFTER ORIF LEFT ARM (~2016 AT [facility]) History of Leal's palsy History of dementia EARLY AGE ONSET. NO MEDICATIONS. PATIENT A&O X3. Hx of congenital abnormality LEFT ARM DEFECT Hyperlipidemia Hypertension Transient ischemic attack (TIA) RECENT BRAIN MRI AND NEUROLOGIST APPOINTMENT ([facility], DR. JOSEMANUEL MIGUEL. BRAIN MRI AT [facility] 2018) Surgical History History of bilateral tubal ligation History of section X2 History of dilatation and curettage UTERINE THERMAL ABLATION History of open reduction and internal fixation (ORIF) procedure LEFT ARM History of surgery on arm MULTIPLE SURGERIES ON LEFT ARM. Family History Other Pneumonia Social History Smoking Status: Current every day smoker Cigarettes Per Day: 1 PPD X 36 YEARS; Second Hand Exposure: No; Hx Alcohol Use: Yes Alcohol type: hard liquor Hx Substance Use: No Preferred Language: Urdu Communication Ability: Effective Admitting Office Escort Required: No Beliefs That Will Affect Care: None marital status: Current Living Situation: Spouse Other Information That Helps Us Care for You: No Feels Safe at Home: Yes Safety Concerns: Feels Safe At This Time Assistive Devices: None Review of Systems See HPI for pertinent positives & negatives. and A total of 10 systems reviewed and were otherwise negative Physical Exam Vital Signs Vital Signs - 24 hr 10/14/20 11:27 10/14/20 11:30 10/14/20 12:00 Pulse Rate 100 H 101 H 97 H Pulse Rate from SpO2 Sensor 100 H 102 H 105 H Respiratory Rate 22 20 20 Blood Pressure 106/59 L 105/49 L 135/73 Blood Pressure Mean 70 61 92 Pulse Oximetry 93 92 95 Oxygen Delivery Method Room Air Room Air 10/14/20 12:01 10/14/20 12:30 10/14/20 13:00 Pulse Rate 101 H 108 H 108 H Pulse Rate from SpO2 Sensor 105 H 110 H 111 H Respiratory Rate 20 22 22 Blood Pressure 115/63 115/69 Blood Pressure Mean 80 89 Pulse Oximetry 94 93 91 Oxygen Delivery Method Room Air Room Air 10/14/20 13:30 10/14/20 14:00 10/14/20 14:30 Pulse Rate 106 H 107 H 105 H Pulse Rate from SpO2 Sensor 106 H 107 H 106 H Respiratory Rate 20 20 22 Blood Pressure 93/66 L 127/68 116/59 L Blood Pressure Mean 80 73 79 Pulse Oximetry 94 91 94 Oxygen Delivery Method Room Air Room Air Room Air 10/14/20 15:00 10/14/20 15:30 10/14/20 15:31 Pulse Rate 107 H 108 H 108 H Pulse Rate from SpO2 Sensor 103 H 107 H 109 H Respiratory Rate 22 20 22 Blood Pressure 108/69 112/62 Blood Pressure Mean 83 79 Pulse Oximetry 94 93 91 Oxygen Delivery Method Room Air 10/14/20 16:00 Pulse Rate 106 H Pulse Rate from SpO2 Sensor 106 H Respiratory Rate 20 Blood Pressure Blood Pressure Mean Pulse Oximetry 93 Oxygen Delivery Method Vital signs reviewed. General: Chronically ill-appearing 55-year-old female, in no significant distress. HEENT: No scleral icterus, no conjunctival injection PERRLA, neck supple. Dry mucous membranes Cardiovascular: Slightly tachycardic but regular, no extra sounds Pulmonary: Clear to auscultation bilaterally, normal work of breathing. Abdomen: Soft, nontender, nondistended, positive bowel sounds. Musculoskeletal: Atraumatic, no peripheral edema. Left upper extremity shortened to ~2/3 humeral length, no elbow joint or distal extremity present. Right upper extremity is shortened, contractured but complete with elbow and distal extremity, hand. Neurologic: Patient somnolent but answers some questions appropriately, follows simple commands. Skin: Warm, dry, no rash Course Administered Medications Discontinued Medications Dextrose (Dextrose 50% 50 Ml Syringe) 50 ml IV NOW ONE Stop: 10/14/20 14:44 Last Admin: 10/14/20 15:57 Dose: 50 ml Documented by: [id number] Dextrose (Dextrose 50% 50 Ml Syringe) 50 ml IV 2014 ONE Stop: 10/14/20 20:16 Last Admin: 10/14/20 21:00 Dose: 50 ml Documented by: [id number] Heparin Sodium (Porcine) (Heparin Sod 5,000 Unit/0.5 Ml Vial) 5,000 units SQ Q12 ALMA Stop: 11/13/20 20:59 Last Admin: 10/14/20 22:15 Dose: Not Given Documented by: [id number] Sodium Chloride (Nss) 500 mls @ 999 mls/hr IV .Q31M ALMA Stop: 10/14/20 11:00 Last Infusion: 10/14/20 11:49 Dose: 0 mls/hr Documented by: [id number] Admin: 10/14/20 11:14 Dose: 999 mls/hr Documented by: [id number] Sodium Chloride (Nss 1000ml) 1,000 mls @ 125 mls/hr IV .Q8H ALMA Stop: 10/14/20 18:29 Last Infusion: 10/14/20 18:29 Dose: 0 mls/hr Documented by: [id number] Admin: 10/14/20 12:20 Dose: 125 mls/hr Documented by: [id number] Ceftriaxone Sodium (Rocephin) 1,000 mg in 50 mls @ 100 mls/hr IV NOW STA Stop: 10/14/20 14:37 Last Infusion: 10/14/20 14:59 Dose: 0 mls/hr Documented by: [id number] Admin: 10/14/20 14:25 Dose: 100 mls/hr Documented by: [id number] Calcium Gluconate () 1,000 mg in 60 mls @ 240 mls/hr IV NOW STA Stop: 10/14/20 14:57 Last Infusion: 10/14/20 16:23 Dose: 0 mls/hr Documented by: [id number] Admin: 10/14/20 15:57 Dose: 240 mls/hr Documented by: [id number] Sodium Chloride (Nss) 500 mls @ 999 mls/hr IV .Q31M ONE Stop: 10/14/20 15:16 Last Infusion: 10/14/20 16:35 Dose: 0 mls/hr Documented by: [id number] Admin: 10/14/20 15:57 Dose: 999 mls/hr Documented by: [id number] Sodium Chloride (Nss 1000ml) 2,000 mls @ 999 mls/hr IV .Q2H1M ONE Stop: 10/14/20 18:02 Last Infusion: 10/14/20 19:08 Dose: 0 mls/hr Documented by: [id number] Admin: 10/14/20 16:23 Dose: 999 mls/hr Documented by: [id number] Sodium Bicarbonate 150 meq/ (Dextrose/Sodium Chloride) 1,150 mls @ 125 mls/hr IV .Q9H12M ALMA Stop: 11/13/20 19:29 Last Admin: 10/14/20 20:20 Dose: 125 mls/hr Documented by: [id number] Calcium Chloride 500 mg/ (Sodium Chloride) 55 mls @ 240 mls/hr IV 2014 ONE Stop: 10/14/20 20:28 Last Infusion: 10/14/20 21:34 Dose: 0 mls/hr Documented by: [id number] Admin: 10/14/20 20:22 Dose: 240 mls/hr Documented by: [id number] Insulin Human Regular 10 units (/ Syringe) 10 mls @ 3 mls/sec IV 2014 ONE Stop: 10/14/20 20:16 Last Admin: 10/14/20 21:00 Dose: 3 mls/sec Documented by: [id number] Cosigned by: [id number] Sodium Chloride (Nss 1000ml) 500 mls @ 999 mls/hr IV .Q31M ONE Stop: 10/14/20 20:44 Last Infusion: 10/14/20 21:34 Dose: 0 mls/hr Documented by: [id number] Admin: 10/14/20 20:23 Dose: 999 mls/hr Documented by: [id number] Insulin Aspart (Insulin Aspart 100 Units/Ml 3 Ml Pen) 0 units SC ACHS ALMA Stop: 11/13/20 20:59 Last Admin: 10/14/20 22:17 Dose: Not Given Documented by: [id number] Cosigned by: [id number] Insulin Human Regular (Novolin-R Insulin Per Unit Charge) 10 units IV NOW STA Stop: 10/14/20 14:44 Last Admin: 10/14/20 15:56 Dose: 10 units Documented by: [id number] Cosigned by: [id number] Miscellaneous (Remove Nicoderm Patch) 1 ea N/A DAILY@[id number] ALMA Stop: 11/13/20 19:44 Last Admin: 10/14/20 20:59 Dose: Not Given Documented by: [id number] Miscellaneous Information (Pharmacy Glycemic Mgmt Consult) 1 ea N/A NOW STA Stop: 10/14/20 16:55 Last Admin: 10/14/20 20:59 Dose: Not Given Documented by: [id number] Nicotine (Nicotine 21 Mg/24 Hr Tdsy) 21 mg TD DAILY ALMA Stop: 11/13/20 19:44 Last Admin: 10/14/20 20:58 Dose: 21 mg Documented by: [id number] Ondansetron HCl (Ondansetron Inj 2 Mg/Ml 2 Ml Vial) 4 mg IV ONE ONE Stop: 10/14/20 21:27 Last Admin: 10/14/20 21:32 Dose: 4 mg Documented by: [id number] Ondansetron HCl (Ondansetron Inj 2 Mg/Ml 2 Ml Vial) Confirm Administered Dose 4 mg .ROUTE .STK-MED ONE Stop: 10/14/20 21:28 Last Admin: 10/14/20 21:32 Dose: Not Given Documented by: [id number] Quetiapine Fumarate (Quetiapine Fumarate 25 Mg Tablet) 50 mg PO HS ALMA Stop: 11/13/20 20:59 Last Admin: 10/14/20 22:16 Dose: Not Given Documented by: [id number] Sodium Bicarbonate (Sodium Bicarb 8.4% Inj 50 Meq/50 Ml Syr) 100 meq IV NOW STA Stop: 10/14/20 16:11 Last Admin: 10/14/20 16:27 Dose: 100 meq Documented by: [id number] Sodium Bicarbonate (Sodium Bicarb 8.4% Inj 50 Meq/50 Ml Syr) 100 meq IV NOW STA Stop: 10/14/20 20:12 Last Admin: 10/14/20 20:22 Dose: 100 meq Documented by: [id number] Sodium Polystyrene Sulfonate (Sodium Polystyrene Sulfonate 15g/60ml Susp) 30 gm PO NOW STA Stop: 10/14/20 16:04 Last Admin: 10/14/20 18:40 Dose: 30 gm Documented by: [id number] Sodium Polystyrene Sulfonate (Sodium Polystyrene Sulfonate 15g/60ml Susp) Confirm Administered Dose 30 gm .ROUTE .STK-MED ONE Stop: 10/14/20 18:36 Last Admin: 10/14/20 19:07 Dose: Not Given Documented by: [id number] Sodium Polystyrene Sulfonate (Sodium Polystyrene Sulfonate 15g/60ml Susp) 30 gm PO NOW STA Stop: 10/14/20 19:36 Last Admin: 10/14/20 20:58 Dose: 30 gm Documented by: [id number] Critical Care Time Critical Care Time: Yes I have personally spent greater than 45 minutes of critical care time in the direct management of this patient. This includes bedside care, interpretation of diagnostic studies, and testing, discussion with consultants, patient, and family members, and other required patient management activities. This 45 minutes is in excess of all separately billable procedures. Medical Decision Making Differential Diagnosis Infection, dehydration, metabolic abnormality, hypo/hyperglycemia, electrolyte disturbance, anemia, hypoxia, cardiac sources, intracerebral event, toxicologic, neurologic, as well as other pathologies. Medical Records Attestation: I reviewed the patient's medical records. Home Medications Current Medication List: was personally reviewed by me Laboratory Data Attestation: I reviewed the patient's lab results. Result diagrams: 10/14/20 14:02 10/14/20 19:37 Lab Results 10/14/20 10/14/20 10/14/20 Range/Units 10:30 10:30 11:15 WBC (4.8-10.8) K/uL RBC (4.2-5.4) M/uL Hgb (12.0-16.0) g/dL Hct (37-47) % MCV (80-100) fL MCH (25-34) pg MCHC (32-36) g/dL RDW Std Deviation (36.4-46.3) fL RDW Coeff of Wing (11.5-14.5) % Plt Count (130-400) K/uL MPV (7.4-10.4) fL Immature Gran % (Auto) % Neut % (Auto) % Lymph % (Auto) % Montague % (Auto) % Eos % (Auto) % Baso % (Auto) % Neut # (Auto) (1.4-6.5) K/uL Lymph # (Auto) (1.2-3.4) K/uL Montague # (Auto) (0.11-0.59) K/uL Eos # (Auto) (0-0.5) K/uL Baso # (Auto) (0-0.2) K/uL Immature Gran # (Auto) (0.00-0.02) K/uL PT (9.0-12.0) Seconds INR (0.9-1.1) APTT (21.0-31.0) Seconds PTT Ratio Sodium (136-145) mmol/L Potassium (3.5-5.1) mmol/L Chloride (98-107) mmol/L Carbon Dioxide (21-32) mmol/L Anion Gap (3-11) BUN (7-18) mg/dl Creatinine (0.6-1.2) mg/dl Est Cr Clr Drug Dosing ml/min Est GFR ( Amer) Est GFR (Non-Af Amer) BUN/Creatinine Ratio (10-20) Glucose (70-99) mg/dl Lactate (0.4-2.0) mmol/L Calcium (8.5-10.1) mg/dl Magnesium (1.8-2.4) mg/dl Total Bilirubin (0.2-1) mg/dl AST (15-37) U/L ALT (12-78) U/L Alkaline Phosphatase (45-117) U/L Total Protein (6.4-8.2) gm/dl Albumin (3.4-5.0) gm/dl Globulin (2.5-4.0) gm/dl Albumin/Globulin Ratio (0.9-2) TSH (0.300-4.500) uIu/ml Urine Color Yellow Urine Appearance Cloudy A (Clear) Urine pH 5.0 (4.5-7.5) Ur Specific Minto 1.020 (1.000-1.030) Urine Protein 2+ H (Negative) Urine Glucose (UA) Negative (Negative) Urine Ketones Trace H (Negative) Urine Blood 1+ H (Negative) Urine Nitrite Negative (Negative) Urine Bilirubin Negative (Negative) Urine Urobilinogen Negative (Negative) Ur Leukocyte Esterase 2+ H (Negative) Urine WBC (Auto) >30 H (0-5) /hpf Urine RBC (Auto) 0-4 (0-4) /hpf U Hyaline Cast (Auto) 1-5 (0-5) /lpf U Epithel Cells (Auto) 5-10 H (0-5) /lpf Urine Bacteria (Auto) 4+ H (Negative) Urine Osmolality (500-800) mOsm/kg COVID-19 Eval Order Covid19 IDNow atMPAC SARS-CoV-2, RNA, NAAT NEGATIVE (NEGATIVE) 10/14/20 10/14/20 10/14/20 Range/Units 11:15 14:02 14:02 WBC 11.92 H (4.8-10.8) K/uL RBC 3.31 L (4.2-5.4) M/uL Hgb 10.6 L (12.0-16.0) g/dL Hct 35.0 L (37-47) % MCV 105.7 H (80-100) fL MCH 32.0 (25-34) pg MCHC 30.3 L (32-36) g/dL RDW Std Deviation 60.2 H (36.4-46.3) fL RDW Coeff of Wing 15.4 H (11.5-14.5) % Plt Count 210 (130-400) K/uL MPV 10.9 H (7.4-10.4) fL Immature Gran % (Auto) 1.2 % Neut % (Auto) 79.1 % Lymph % (Auto) 10.7 % Montague % (Auto) 8.3 % Eos % (Auto) 0.5 % Baso % (Auto) 0.2 % Neut # (Auto) 9.43 H (1.4-6.5) K/uL Lymph # (Auto) 1.28 (1.2-3.4) K/uL Montague # (Auto) 0.99 H (0.11-0.59) K/uL Eos # (Auto) 0.06 (0-0.5) K/uL Baso # (Auto) 0.02 (0-0.2) K/uL Immature Gran # (Auto) 0.14 H (0.00-0.02) K/uL PT (9.0-12.0) Seconds INR (0.9-1.1) APTT (21.0-31.0) Seconds PTT Ratio Sodium 139 (136-145) mmol/L Potassium 8.1 H* (3.5-5.1) mmol/L Chloride 118 H (98-107) mmol/L Carbon Dioxide 14 L (21-32) mmol/L Anion Gap 7.0 (3-11) BUN 121 H (7-18) mg/dl Creatinine 5.68 H* (0.6-1.2) mg/dl Est Cr Clr Drug Dosing 9.4 ml/min Est GFR ( Amer) 9.1 Est GFR (Non-Af Amer) 7.9 BUN/Creatinine Ratio 21.4 H (10-20) Glucose 81 (70-99) mg/dl Lactate (0.4-2.0) mmol/L Calcium 8.1 L (8.5-10.1) mg/dl Magnesium 2.2 (1.8-2.4) mg/dl Total Bilirubin 0.3 (0.2-1) mg/dl AST 19 (15-37) U/L ALT 26 (12-78) U/L Alkaline Phosphatase 97 (45-117) U/L Total Protein 6.7 (6.4-8.2) gm/dl Albumin 3.2 L (3.4-5.0) gm/dl Globulin 3.5 (2.5-4.0) gm/dl Albumin/Globulin Ratio 0.9 (0.9-2) TSH 0.557 (0.300-4.500) uIu/ml Urine Color Urine Appearance (Clear) Urine pH (4.5-7.5) Ur Specific Minto (1.000-1.030) Urine Protein (Negative) Urine Glucose (UA) (Negative) Urine Ketones (Negative) Urine Blood (Negative) Urine Nitrite (Negative) Urine Bilirubin (Negative) Urine Urobilinogen (Negative) Ur Leukocyte Esterase (Negative) Urine WBC (Auto) (0-5) /hpf Urine RBC (Auto) (0-4) /hpf U Hyaline Cast (Auto) (0-5) /lpf U Epithel Cells (Auto) (0-5) /lpf Urine Bacteria (Auto) (Negative) Urine Osmolality 344 L (500-800) mOsm/kg COVID-19 Eval Order SARS-CoV-2, RNA, NAAT (NEGATIVE) 10/14/20 10/14/20 Range/Units 14:04 14:08 WBC (4.8-10.8) K/uL RBC (4.2-5.4) M/uL Hgb (12.0-16.0) g/dL Hct (37-47) % MCV (80-100) fL MCH (25-34) pg MCHC (32-36) g/dL RDW Std Deviation (36.4-46.3) fL RDW Coeff of Wing (11.5-14.5) % Plt Count (130-400) K/uL MPV (7.4-10.4) fL Immature Gran % (Auto) % Neut % (Auto) % Lymph % (Auto) % Montague % (Auto) % Eos % (Auto) % Baso % (Auto) % Neut # (Auto) (1.4-6.5) K/uL Lymph # (Auto) (1.2-3.4) K/uL Montague # (Auto) (0.11-0.59) K/uL Eos # (Auto) (0-0.5) K/uL Baso # (Auto) (0-0.2) K/uL Immature Gran # (Auto) (0.00-0.02) K/uL PT 10.4 (9.0-12.0) Seconds INR 1.0 (0.9-1.1) APTT 31.0 (21.0-31.0) Seconds PTT Ratio 1.1 Sodium (136-145) mmol/L Potassium (3.5-5.1) mmol/L Chloride (98-107) mmol/L Carbon Dioxide (21-32) mmol/L Anion Gap (3-11) BUN (7-18) mg/dl Creatinine (0.6-1.2) mg/dl Est Cr Clr Drug Dosing ml/min Est GFR ( Amer) Est GFR (Non-Af Amer) BUN/Creatinine Ratio (10-20) Glucose (70-99) mg/dl Lactate 0.5 (0.4-2.0) mmol/L Calcium (8.5-10.1) mg/dl Magnesium (1.8-2.4) mg/dl Total Bilirubin (0.2-1) mg/dl AST (15-37) U/L ALT (12-78) U/L Alkaline Phosphatase (45-117) U/L Total Protein (6.4-8.2) gm/dl Albumin (3.4-5.0) gm/dl Globulin (2.5-4.0) gm/dl Albumin/Globulin Ratio (0.9-2) TSH (0.300-4.500) uIu/ml Urine Color Urine Appearance (Clear) Urine pH (4.5-7.5) Ur Specific Minto (1.000-1.030) Urine Protein (Negative) Urine Glucose (UA) (Negative) Urine Ketones (Negative) Urine Blood (Negative) Urine Nitrite (Negative) Urine Bilirubin (Negative) Urine Urobilinogen (Negative) Ur Leukocyte Esterase (Negative) Urine WBC (Auto) (0-5) /hpf Urine RBC (Auto) (0-4) /hpf U Hyaline Cast (Auto) (0-5) /lpf U Epithel Cells (Auto) (0-5) /lpf Urine Bacteria (Auto) (Negative) Urine Osmolality (500-800) mOsm/kg COVID-19 Eval Order SARS-CoV-2, RNA, NAAT (NEGATIVE) Imaging Data Radiologist's Impression: CT head/brain wo con CLINICAL HISTORY: 55 years-old Female with AMS. Acutely altered mental status TECHNIQUE: Multiple axial CT images of the head were obtained without contrast. A dose lowering technique was utilized adhering to the principles of ALARA. CT DOSE: 921.40 mGy.cm COMPARISON: None. FINDINGS: No acute intracranial hemorrhage, midline shift, intracranial mass, hydrocephalus, territorial ischemia or abnormal extra-axial collection. Mildly motion degraded exam. Cerebral vascular calcifications. The calvarium is intact. Right mastoid air cells are clear. Trace left mastoid effusion. Minimal mucosal thickening of the nasal sinuses. Soft tissues and orbits are unremarkable. IMPRESSION: No acute intracranial abnormality or calvarial fracture. ACT 112: Negative or not required by law. The above report was generated using voice recognition software. It may contain grammatical, syntax or spelling errors. Electronically signed by: Robbie Chang M.D. 10/14/2020 1:08 PM Dictated: 10/14/20 1305Transcribed: 10/14/20 1305 XR chest 1V portable CLINICAL HISTORY: weakness COMPARISON STUDY: Chest radiograph July 19, 2019. FINDINGS: Incidental note is made of an anterior cervical spine fusion. Patient is mildly rotated. Left humeral head appears slightly dysmorphic. Bilateral pleural densities are noted. There are bibasilar opacities and mild asymmetric left lung opacity. Mild cardiomegaly is noted without evidence for pulmonary edema. IMPRESSION: 1. Bibasilar opacities that could reflect an infectious process or atelectasis. Radiographic follow-up is recommended. 2. Bilateral pleural densities which favor extrapleural fat however small bilate ral pleural effusions could appear similar. ACT 112: Negative or not required by law. Electronically signed by: Lul Xie M.D. 10/14/2020 10:59 AM Dictated: 10/14/20 1051Transcribed: 10/14/[address] WITHOUT CONTRAST CT DOSE: 294.88 mGy.cm HISTORY: Acute renal failure with urinary tract infection ARF, obstruction, UTI TECHNIQUE: Multiaxial CT images of the abdomen and pelvis were performed without contrast. A dose lowering technique was utilized adhering to the principles of ALARA. COMPARISON STUDY: None. FINDINGS: Trace right pleural effusion with right greater than left bibasilar linear consolidation. Mild right hemidiaphragmatic elevation. No pneumatosis or pneumoperitoneum. Cardiomegaly with trace pericardial effusion. Coronary artery calcifications. The unenhanced spleen, mildly atrophic pancreas, adrenal glands, gallbladder and unenhanced liver appear unremarkable. Nonspecific mild to moderate bilateral perinephric stranding. lobulations of the kidneys. No renal or ureteral calculi or obstructive uropathy. Ureters are within normal limits. Urinary bladder wall thickening with partial distention. Mild perivesicular stranding. The prostate measures Limits of normal in size. Calcified plaque of the abdominal aorta without ane urysm. No adenopathy. No bowel obstruction or bowel wall thickening. Colonic diverticulosis. Terminal ileum and appendix are unremarkable. Tiny fat filled infraumbilical ventral abdominal wall hernia, diastases of 2.7 cm. Indeterminate likely benign 2 mm calcification of the midline anterior pelvis. Unremarkable soft tissues. Degenerative changes of the spine, pelvis and hips. No acute fracture. Probable bone island of the right femoral head. IMPRESSION: 1. No urolith or obstructive uropathy. 2. Partial distention of the urinary bladder with mild wall thickening and perivesicular stranding. Correlate with urinalysis. 3. No bowel obstruction or bowel wall thickening. Normal appendix. 4. Trace right pleural effusion with asymmetric right lung base opacities, likely atelectatic. Pneumonitis could appear similarly. 5. Additional findings as above. ACT 112: Negative or not required by law. The above report was generated using voice recognition software. It may contain grammatical, syntax or spelling errors. Electronically signed by: Robbie Chang M.D. 10/14/2020 4:04 PM Dictated: 10/14/201554Transcribed: 10/14/201554 ECG Data Attestation: I personally reviewed and interpreted this ECG as follows: Indication: + tachycardia Rate (beats per minute): 151 Rhythm: + sinus tachycardia ECG Intervals/blocks: + Prolonged QT (529) ECG ST segments: + Normal ST segments ECG Findings: + Q waves (inferior, Anterolateral) and + Peaked T waves (Lateral); no PACs and no PVCs Blood Pressure Blood Pressure Findings: Normal blood pressure Blood Pressure Disposition: did not require urgent referral MDM Narrative This patient was evaluated and appeared to be in no significant distress. IV access was obtained but laboratory work was difficult. An order for cardiac monitoring was placed and the patient is noted to be in a sinus tachycardia. She was hydrated with normal saline solution. EKG reveals sinus tachycardia with slightly peaked T waves. A left EJ was placed by myself and laboratory work was obtained after multiple attempts by lab and nursing staff. Laboratory work reveals hyperkalemia at 8.1 with an acute renal failure BUN of 121 and creatinine of 5.68. Patient did receive 1 amp of calcium gluconate, 1 amp of D50, 10 units of IV regular insulin and additional IV hydration. Patient is also found to have a UTI and was given 1 g of IV ceftriaxone. Urine cultures are pending. CT imaging of the abdomen pelvis was performed to rule out renal obstruction, the study is read as negative for obstructive uropathy. [facility] the patient for further management. Impression & Plan Acute renal failure, Acute dehydration, Acute hyperkalemia, UTI (urinary tract infection) Discharge Plan Visit Data Chief Complaint: Illness Stated Complaint: LETHARGIC/DIZZY ED Provider: Pearl Lieberman Discharge Problem: Acute renal failure, Acute dehydration, Acute hyperkalemia, UTI (urinary tract infection) Patient Disposition: Admitted As Inpatient Discharge Instructions Interventions: ED Discharge Assessment Last Done: 10/14/20 18:30 Discharge Problem: Acute renal failure Qualifiers: Acute renal failure type: unspecified Qualified Code(s): N17.9 - Acute kidney failure, unspecified UTI (urinary tract infection) Qualifiers: Urinary tract infection type: acute cystitis Hematuria presence: without hematuria Qualified Code(s): N30.00 - Acute cystitis without hematuria
[2020-10-14 18:09] LABS: Salicylate 4.2 mg/dl (2.8-20)
[2020-10-14] MEDS ORDERED: SODIUM POLYSTYRENE SULFONATE 15G/60ML SUSP ONE (18:35)
[2020-10-14] MEDS ORDERED: ICU PROTOCOL FOR HYPERGLYCEMIA PRN (18:59)
[2020-10-14] MEDS ORDERED: D5W IV SCH (19:30)
[2020-10-14] MEDS ORDERED: SODIUM BICARBONATE IV SCH (19:30)
[2020-10-14] MEDS ORDERED: [UNRECOGNIZED DRUG - OTHER] IV SCH (19:30)
[2020-10-14] MEDS ORDERED: NICOTINE 21 MG/24 HR TDSY TD SCH (19:45)
[2020-10-14] MEDS ORDERED: CARBOHYDRATES FOR HYPOGLYCEMIA PO PRN (19:46)
[2020-10-14] MEDS ORDERED: GLUCOSE 40% GEL 15 GM TUBE PO PRN (19:46)
[2020-10-14] MEDS ORDERED: GLUCOSE 10 TABS/TUBE PO PRN (19:46)
[2020-10-14] MEDS ORDERED: DEXTROSE 50% 50 ML SYRINGE IV PRN (19:46)
[2020-10-14] MEDS ORDERED: GLUCAGON FOR INJ 1 MG VIAL SQ PRN (19:46)
--- NOTE | 2020-10-14 19:51 | Critical Care Consultation ---
Date of Consultation October 14, 2020 Assessment & Plan (1) Acute renal failure: Impression: 55-year-old female presents to the ICU in acute renal failure, hyperkalemia, metabolic acidosis. Currently medically managing with plans to transport to facility with 24-hour dialysis capability. Neuro - AMSlikely metabolic as patient's BUN significantly elevated at 142 -Patient is alert to self and place and is aware of the current year -CT head performed in the emergency department was negative for acute process Cardiac - EKG performed in the emergency department was negative for T wave abnormalities Would hold lisinopril as patient is in acute renal failure Continuous monitoring on telemetry as patient is high risk for developing dysrhythmias with electrolyte abnormalities and metabolic acidosis Respiratory - Currently maintaining sats on 2 L nasal cannula, history of COPD -Continuous monitoring on pulse ox -Patient is tachypneic with respiratory rate in the 30s which is right likely related to compensation for metabolic acidosis, which is confirmed with a VBG -Nebs as needed GI - Renal diet RENAL/LYTES - Acute renal failure/hyperkalemia/metabolic acidosispatient initially presented with potassium of 8.1, creatinine 5.68 with baseline creatinine 1.02 on previous admission -Received 3 L NSS bolus, 100 mg bicarb push, 30 mg Kayexalate, 10 units insulin and dextrose, and calcium gluconate push -Repeat potassium 6.5 and VBG with pH of 7.17 -Patient has been accepted to [facility] as they have 24-hour dialysis capability and will continue with medical management and frequent lab in the meantime -In the event transfer is significantly delayed, would be able to perform dialysis in the a.m. here -Continue with bicarb drip and every 4 hour BMPs and VBG's and continue monitoring in the ICU for now - Inserted Foleystrict I's and O's ENDO - DM type IItransitioning Metformin and glipizide to sliding scale insulin as raghavendra anali is in acute renal failure -Hemoglobin A1c pending TSH within normal limit HEME - H&H within normal limits, monitor routine CBCs ID - UTIurinalysis demonstrates bacteria in the urine, started on Rocephin -Urine cultures and blood culture to follow -Pro-Dexter negative LINES/IV ACCESS - Peripheral IVs, DVT PROPHYLAXIS - SCDs, hold on anticoagulation as patient will need HD cath inserted I have personally spent 65 minutes of critical care time in the direct management of this patient. This is a life/limb threatening event. This includes time spent evaluating patient, direct bedside care, chart review, placing orders, interpretation of diagnostic studies, discussion with consultants, patient, and family members, as well as other required patient management activities. This time is exclusive of all separately billable procedures, and teaching time and separate from and in addition to any other critical care service time. Thank you for allowing us to participate in the care of this patient. Please refer to my attending physician's documentation for any further recommendations. (2) Acute hyperkalemia: (3) Bipolar disorder: (4) COPD (chronic obstructive pulmonary disease): (5) GERD (gastroesophageal reflux disease): (6) Diabetes mellitus, type 2: (7) Hypertension: (8) Acute dehydration: (9) UTI (urinary tract infection): (10) Metabolic acidosis: Supervising Physician Co-Signing Physician Notes I saw and evaluated the patient with Enio Kearney, and agree with findings and plan as documented in the note. Patient seen and examined at bedside. Labs reviewed. Patient is a 55-year-old oh came in because of metabolic encephalopathy most likely from the elevated BUN of 121 and creatinine of 5.2. Her initial potassium was 8.5 in the ED. She was given calcium gluconate, insulin, bicarb, Kayexalate x1. Patient did not have Vila catheter till she came to the ICU. We did not have a good urine output. After putting the Vila catheter and patient made only 200 mL of urine. Stat labs which were repeated the patient came to the ICU still showed potassium of 6.5, BUN of 111, and ABG pH of 7.17. Patient was tachycardic in the 115, breathing in the 30s most likely from metabolic acidosis. Answering simple questions. Given that we do not have dialysis capabilities overnight and patient making only 200 amount of urine that is a possibility patient might need dialysis overnight if there is no improvement in the potassium. I had a talk with [facility] tray service worker as well as hospitalist who accepted the patient. I will give the patient another calcium chloride, Kayexalate 30, 100 mEq of bicarb, insulin 10 units along with dextrose 50. Repeat BMP every 4 hours. Continue with bicarb drip If the patient is still here in the morning we will put a stat Shiley catheter and dialyze her here. History of Present Illness Attending Physician: Ian Egan MD History of Present Illness Ms. forte is a 55-year-old female with past medical history diabetes type 2, COPD, bipolar disorder, history of multiple nonmelanoma skin cancer, and BUE congenital deformity who presented to the emergency department earlier this evening via EMS with weakness and confusion/AMS. Patient was found by the neighbor who was looking in on her while her daughter was away, and was noted to be sitting in the same chair he had left her in the previous evening. Patient's daughter did report that her mental status has been declining over the past 2 months for which she has not been evaluated. And she reportedly has had decreased p.o. intake and has reportedly not been drinking very much water. In the emergency department she was noted to be in acute renal failure and hyperkalemic, with creatinine 5.68 and potassium of 8.1. She was given 3 L crystalloid bolus, 100 mg bicarb push, calcium gluconate push, and 10 units insulin in D50 push. CT abdomen was negative for obstructive process. Patient was noted to be tachycardic, tachypneic however remains normotensive and is maintaining sats on 2 L nasal cannula. Repeat labs are pending and she was transferred to the ICU. VBG was collected on arrival and patient remains acidotic with pH of 7.17 and she was started on bicarb drip and given 100 mg additional bicarb push. Repeat potassium has improved at 6.5 but remains significantly elevated. Unfortunately, there are not dialysis capabilities here at [facility] during the evening shifts, and in the events the patient were to decompensate or fail to respond to medical management, accessed at dialysis would be significantly delayed due to transport. [facility] was contacted and patient was discussed with Dr. Salvador with medical service and furnace filler at [facility]. Patient has been accepted by Dr. Salvador with plan to transfer as soon as there is a bed available. We will continue to medically manage and repeat frequent labs in the meantime. Currently patient is mildly confused but is aware of place and year and states she is currently comfortable. She is somewhat tachypneic and does state that she is slightly short of breath. She currently denies pain, headache, dizziness, syncope, nausea or vomiting, recent illness, sore throats, chest pain, palpitations, abdominal tenderness or pain, fevers, or diarrhea. Allergies Allergy/AdvReac Type Severity Reaction Status Date / Time sulfamethoxazole Allergy Severe Anaphylaxis Verified 10/14/20 11:12 [From Bactrim] trimethoprim [From Bactrim] Allergy Severe Anaphylaxis Verified 10/14/20 11:12 latex Allergy Intermediate LOCALIZED Verified 10/14/20 11:12 HIVES Home Medications Medication Instructions Recorded Confirmed Type aspirin [Aspirin Low Dose] 81 mg PO QAM 01/29/19 10/14/20 History atorvastatin [Lipitor] 80 mg PO QAM 01/29/19 10/14/20 History cholecalciferol (vitamin D3) 2,000 unit PO QAM 01/29/19 10/14/20 History [Vitamin D3] citalopram [Celexa] 20 mg PO QAM 01/29/19 10/14/20 History gabapentin 100 - 200 mg PO TID 01/29/19 10/14/20 History glipizide 5 mg PO QAM 01/29/19 10/14/20 History lisinopril 40 mg PO QAM 01/29/19 10/14/20 History metformin 850 mg PO BID 01/29/19 10/14/20 History quetiapine [Seroquel] 50 mg PO HS 01/29/19 10/14/20 History nicotine [Nicoderm CQ] 1 patch TRANSDERMAL DAILY 07/17/19 10/14/20 History Advair HFA 1 puff INHALATION BID 10/14/20 10/14/20 History Patient History Medical History (Updated 10/14/20 @ 21:21 by ALEJANDRO Juarez) Anemia Anxiety Bipolar disorder Blindness LEGALLY BLIND Cancer SKIN CANCER Cardiac murmur POSSIBLE COPD (chronic obstructive pulmonary disease) Depression Diabetes mellitus, type 2 NIDDM Dysphagia BASELINE FOR 3 YEARS. NO KNOWN HISTORY OF STROKE. Facial droop BASELINE FOR 3 YEARS. NO KNOWN HISTORY OF A STROKE Fusion of spine C4-C5. FUL ROM GERD (gastroesophageal reflux disease) History of anesthesia reaction BRONCHOSPASMS --> PATIENT WAS INTUBATED FOR SEVERAL DAYS AFTER ORIF LEFT ARM (~2017 AT [facility]) History of Leal's palsy History of dementia EARLY AGE ONSET. NO MEDICATIONS. PATIENT A&O X3. Hx of congenital abnormality LEFT ARM DEFECT Hyperlipidemia Hypertension Transient ischemic attack (TIA) RECENT BRAIN MRI AND NEUROLOGIST APPOINTMENT ([facility], DR. JOSEMANUEL MIGUEL. BRAIN MRI AT [facility] 2018) Surgical History History of bilateral tubal ligation History of section X2 History of dilatation and curettage UTERINE THERMAL ABLATION History of open reduction and internal fixation (ORIF) procedure LEFT ARM History of surgery on arm MULTIPLE SURGERIES ON LEFT ARM. Family History Other Pneumonia Social History Smoking Status: Current every day smoker Cigarettes Per Day: 1 PPD X 36 YEARS; Second Hand Exposure: No; Hx Alcohol Use: Yes Alcohol type: hard liquor Hx Substance Use: No Preferred Language: Spanish Communication Ability: Effective Mechanic Senior Required: No Beliefs That Will Affect Care: None marital status: Current Living Situation: Spouse Other Information That Helps Us Care for You: No Feels Safe at Home: Yes Safety Concerns: Feels Safe At This Time Assistive Devices: None Review of Systems Review of Systems: All systems reviewed & are unremarkable except as noted in HPI & below Physical Exam Constitutional: cooperative and comfortable Eyes: PERRL, conjunctivae normal, anicteric sclerae ENMT: external ear and nose normal, oropharynx normal Neck: trachea midline, no thyromegaly Respiratory: normal respiratory effort, lungs clear to auscultation + tachypneic Cardiovascular: Rate/Rhythm: regular rhythm and + tachycardic Heart Sounds: normal S1 and normal S2 Vessels: no JVD Extremities: normal capillary refill; no edema Gastrointestinal (Abdomen): normal bowel sounds, soft, nontender, no hepatosplenomegaly Neurologic: PERRL, EOMI, accommodation nl, no face palsy, no dysarthria Psychiatric: Orientation: oriented to person, oriented to place and cooperative Results & Data Results & Data ([facility]) Vital Signs (Past 12 Hours) Vital Signs Temp Pulse Pulse Resp BP BP Pulse Ox 10/14/20 18:58 37.0 C 128 H 30 H 108/62 92 10/14/20 18:01 94 10/14/20 18:00 124/81 95 10/14/20 17:31 112 H 20 96 10/14/20 17:30 112 H 19 126/79 96 10/14/20 17:01 116 H 23 93 10/14/20 17:00 117 H 22 133/82 92 10/14/20 16:31 108 H 24 93 10/14/20 16:30 115 H 22 121/64 90 10/14/20 16:03 109 H 22 94 10/14/20 16:02 107 H 20 101/58 L 94 10/14/20 16:00 106 H 20 93 10/14/20 15:31 108 H 22 91 10/14/20 15:30 108 H 20 112/62 93 10/14/20 15:00 107 H 22 108/69 94 10/14/20 14:30 105 H 22 116/59 L 94 10/14/20 14:00 107 H 20 127/68 91 10/14/20 13:30 106 H 20 93/66 L 94 10/14/20 13:00 108 H 22 115/69 91 10/14/20 12:30 108 H 22 115/63 93 10/14/20 12:01 101 H 20 94 10/14/20 12:00 97 H 20 135/73 95 10/14/20 11:30 101 H 20 105/49 L 92 10/14/20 11:27 100 H 22 106/59 L 93 10/14/20 10:30 101 H 22 95/64 L 94 10/14/20 10:26 94 10/14/20 10:11 37 C 102 H 18 104/46 L 98 10/14/20 14:02 10/14/20 19:37 Coding Level of Care Code Critical Care 1st -74 mins Diagnoses Acute renal failure N17.9 Acute renal failure type: unspecified Acute hyperkalemia E87.5 Bipolar disorder F31.9 COPD (chronic obstructive pulmonary disease) J44.9 COPD type: unspecified COPD GERD (gastroesophageal reflux disease) K21.9 Esophagitis presence: esophagitis presence not specified Diabetes mellitus, type 2 E11.319 Diabetes mellitus complication detail: with diabetic retinopathy Diabetes mellitus complication status: with ophthalmic complications Diabetes mellitus terminal make up operator insulin use: without fci use Diabetes mellitus macular edema: without macular edema Diabetic retinopathy severity: with unspecified retinopathy severity Laterality: unspecified laterality Hypertension I10 Acute dehydration E86.0 UTI (urinary tract infection) N30.00 Hematuria presence: without hematuria Urinary tract infection type: acute cystitis Metabolic acidosis E87.2 (1) UTI (urinary tract infection) Hematuria presence: without hematuria Urinary tract infection type: acute cystitis Qualified Code(s): N30.00 - Acute cystitis without hematuria (2) Acute renal failure Acute renal failure type: unspecified Qualified Code(s): N17.9 - Acute kidney failure, unspecified (3) Diabetes mellitus, type 2 Diabetes mellitus complication detail: with diabetic retinopathy Diabetes mellitus complication status: with ophthalmic complications Diabetes mellitus fci insulin use: without terminal make up operator use Diabetes mellitus macular edema: without macular edema Diabetic retinopathy severity: with unspecified retinopathy severity Laterality: unspecified laterality Qualified Code(s): E11.319 - Type 2 diabetes mellitus with unspecified diabetic retinopathy without macular edema (4) COPD (chronic obstructive pulmonary disease) COPD type: unspecified COPD Qualified Code(s): J44.9 - Chronic obstructive pulmonary disease, unspecified (5) GERD (gastroesophageal reflux disease) Esophagitis presence: esophagitis presence not specified Qualified Code(s): K21.9 - Gastro-esophageal reflux disease without esophagitis
[2020-10-14 20:04] LABS: Base Excess ABG -13.3 mEq/L (-9-1.8); HCO3 ABG 14 mmol/L (19-24); Oxygen Saturation ABG 94.3 % (90-95); PCO2 ABG 40 mmHg (35-46); PO2 ABG 81 mmHg (80-95)
[2020-10-14 20:05] LABS: Allen Test Pos (Pos)
[2020-10-14 20:08] LABS: pH ABG 7.17 (7.35-7.45)
[2020-10-14] MEDS ORDERED: SODIUM CHLORIDE 0.9% 1000ML 500 ML IV ONE (20:14)
[2020-10-14] MEDS ORDERED: INSULIN HUMAN REGULAR PER UNIT 10 UNITS in SYRINGE 9.9 ML IV ONE (20:15)
[2020-10-14] MEDS ORDERED: CALCIUM CHLORIDE 10% 500 MG in SODIUM CHLORIDE 0.9% 50 ML IV ONE (20:15)
[2020-10-14] MEDS ORDERED: PHARMACY GLYCEMIC MGMT CONSULT PRN (20:19)
[2020-10-14 20:37] LABS: Calcium 7.9 mg/dl (8.5-10.1); Creatinine Clr Calc Pharmacy 10.7 ml/min; Est GFR (African American) 10.7; Est GFR (Non-African American) 9.2; Potassium 6.5 mmol/L (3.5-5.1)
[2020-10-14] MEDS ORDERED: INSULIN ASPART 100 UNITS/ML 3 ML PEN SC SCH (21:00)
[2020-10-14] MEDS ORDERED: HEPARIN SOD 5,000 UNIT/0.5 ML VIAL SQ SCH (21:00)
[2020-10-14] MEDS ORDERED: QUEtiapine FUMARATE 25 MG TABLET PO SCH (21:00)
[2020-10-14] MEDS ORDERED: ONDANSETRON INJ 2 MG/ML 2 ML VIAL IV ONE (21:26)
[2020-10-14] MEDS ORDERED: ONDANSETRON INJ 2 MG/ML 2 ML VIAL ONE (21:27)
--- NOTE | 2020-10-14 22:32 | Discharge Summary ---
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 History from the patient is extremely limited due to altered mental status so history obtained from ED provider, medical record, and from speaking with the pt's PCP. I also attempted to reach the daughter but call went immediately to a generic voicemail. Pt has a history of congenital deformities of bilateral UE so she requires a caregiver to assist with her ADLs. The pt's daughter is her caregiver Mon-Mon 7a-3pm. assists with her care the rest of the time. The family left on Monday for a trip with pt's [id number] who has terminal cancer. The pt's neighbor has been checking on her 2-3 times per day and apparently taking her out to eat. Yesterday they noted that they patient seem off and was not eating much. They called pt's daughter who thought that pt was simply tired. Today, they went to check on the pt and found her sitting in the same chair and position that she was when they left yesterday and she seemed more confused so they called EMS. Initially in the ED, labs were difficult to obtain and pt ultimately required an EJ placement for a line. Labs revealed SHAWNA with a BUN of 121 and creatinine of 5.68, potassium of 8.1 so pt was given calcium gluconate, insulin/glucose, and IVF. Initial UA concerning for UTI so pt started on ceftriaxone. Pt's daughter reports that her mental status has been declining over the past two months. They have noted increased confusion, frequent blank starts, seeming inability to comprehend questions, and abnormal facial movements at times. Pt has apparently not been evaluated for these. Appetite over the past few months has been decreasing with pt often only eating a small amount once a day. She does not drink much water, preferring to drink coffee. Admission Exam Per Admitting Provider Physical Exam Constitutional: + altered mental status and + disheveled; no acute distress Eyes: + anicteric sclerae Neck: trachea midline Respiratory: + tachypneic (mild); no respiratory distress and does not use accessory muscles Auscultation: + diminished lung sounds Cardiovascular: Rate/Rhythm: regular rate and + tachycardic Heart Sounds: + murmur Vessels: radial pulses present Extremities: no pedal edema Gastrointestinal (Abdomen): Inspection/Auscultation: normal bowel sounds; abdomen not distended Percussion/Palpation: abdomen soft Musculoskeletal: Head/Neck/Chest: normocephalic, head atraumatic and neck supple right upper extremity with congenital deformity and contracture, left upper extremity congenital deformity with shortening Skin: no rashes, warm and dry Neurologic: Limited ability to answer questions - very slow to speak, seems to have some difficulty recalling recent events. Is oriented x 3. Principal Diagnosis Acute kidney injury Acute metabolic encephalopathy Hyperkalemia Acute metabolic acidosis Possible urinary tract infection Discharge Data Allergies Allergy/AdvReac Type Severity Reaction Status Date / Time sulfamethoxazole Allergy Severe Anaphylaxis Verified 10/14/20 11:12 [From Bactrim] trimethoprim [From Bactrim] Allergy Severe Anaphylaxis Verified 10/14/20 11:12 latex Allergy Intermediate LOCALIZED Verified 10/14/20 11:12 HIVES Consultations 10/14/20 14:51 ED Decision to Admit Stat 10/14/20 16:08 Consult Nephrology Stat 10/14/20 18:59 Consult Case Management - Discharge Planning Routine Consult Combination Saw Operator Routine 10/14/20 22:07 Burn CD for patient Routine Procedures Performed CT ABD: Trace right pleural effusion with right greater than left bibasilar linear consolidation. Mild right hemidiaphragmatic elevation. No pneumatosis or pneumoperitoneum. Cardiomegaly with trace pericardial effusion. Coronary artery calcifications. The unenhanced spleen, mildly atrophic pancreas, adrenal glands, gallbladder and unenhanced liver appear unremarkable. Nonspecific mild to moderate bilateral perinephric stranding. lobulations of the kidneys. No renal or ureteral calculi or obstructive uropathy. Ureters are within normal limits. Urinary bladder wall thickening with partial distention. Mild perivesicular stranding. The prostate measures Limits of normal in size. Calcified plaque of the abdominal aorta without aneurysm. No adenopathy. No bowel obstruction or bowel wall thickening. Colonic diverticulosis. Terminal ileum and appendix are unremarkable. Tiny fat filled infraumbilical ventral abdominal wall hernia, diastases of 2.7 cm. Indeterminate likely benign 2 mm calcification of the midline anterior pelvis. Unremarkable soft tissues. Degenerative changes of the spine, pelvis and hips. No acute fracture. Probable bone island of the right femoral head. CT Head: No acute intracranial abnormality or calvarial fracture. CXR: 1. Bibasilar opacities that could reflect an infectious process or atelectasis. Radiographic follow-up is recommended. 2. Bilateral pleural densities which favor extrapleural fat however small bilateral pleural effusions could appear similar. Ordered Studies 10/14/20 11:46 CT head/brain wo con Stat 10/14/20 14:46 CT abd pelvis wo con Stat Hospital Course (1) Acute hyperkalemia: Initial potassium in the ED 8.1 - Given calcium gluconate, insulin, glucose - Spoke with critical care attending who accepted pt to ICU - added Kayexalate po x 1 dose, 2 amps of bicarb - Consult nephrology - may need to consider urgent dialysis - Monitor on telemetry - Repeat EKG in AM (2) Acute renal failure: Suspect related to dehydration as pt reports no oral intake for at least two days (although unsure how reliable of a historian that pt is at present) - NSS x 2 liters bolus then maintenance fluids - Repeat BMP Q6 hrs until labs improving/stabilized - Nephro consult as above - Check serum and urine osmolality (3) Acute dehydration: Related to lack of oral intake. Spoke to PCP who states pt does not always maintain her oral intake at home - has developed mild creatinine elevations previously due to dehydration/use of furosemide (which has since been discontinued) (4) UTI (urinary tract infection): Abnormal UA in ED - culture pending - Will continue empiric ceftriaxone started in the ED (5) COPD (chronic obstructive pulmonary disease): Chest x-ray with bibasilar opacities but pt without significant cough. She is mildly tachypneic in the ED with O2 sats on room air 90-94% when evaluated. COVID test was negative. - Check procalcitonin - if elevated, consider broadening antibiotic coverage - Continue Advair. Will add nebs if worsening respiratory status. (6) Diabetes mellitus, type 2: - Pharm consult for glycemic management - Check A1C in AM (7) Bipolar disorder: - Continue outpatient meds Pt seen and reviewed with collaborating physician, Dr. Egan. Plan of care discussed and as outlined above. Case discussed with american sign language interpreter and appreciate their input. Later in the day, I was finally able to reach pt's daughter, Naty Figueroa, who assisted with the history (she can be reached at [phone]). I updated her on the pt's condition and anticipated plan of c are. All questions were answered. She states that pt does not have a living will nor a POA. However, in the event that patient is unable to make decisions, the daughter states that the pt's would defer to her as the daughter as he prefers to avoid those types of decisions. I did not speak to the . Naty states that they will be back in the area on Monday as they are cutting their trip short. Mitch Steinberg PA-C Total Time Total Time Spent Total Time Spent (In Minutes): 45 minutes Total Time Includes: Examination of the Patient, Discharge Planning, Medication Reconciliation, Communication With Other Providers and Other Discharge Plan Discharge Items Patient Disposition: Transfer Acute [facility] Reason For Visit: HYPERKALEMIA Discharge Diagnosis: Acute kidney injury Acute metabolic encephalopathy Hyperkalemia Acute metabolic acidosis Possible urinary tract infection Activity: Per Instructions section Exercise/Sports: Wait until after follow-up appointment Non-emergency contact: Primary Care Provider and Thermal Technician Call non-emergency contact if: you have any medication questions, your symptoms worsen, your pain is not controlled, your pain is worsening, your pain is unusual for you, your pain is concerning for you and you have a fever Follow-up/Referrals: Ade Moctezuma DO [Primary Care Provider] - Diet: Dialysis Renal and Low Potassium (2gm) Addtl Attending Provider Instructions: Follow-up with your physician at [facility] for further management. Your lisinopril, Metformin, glipizide, atorvastatin are held during your hospital stay. Pending Studies at Discharge: Yes Stand-Alone Forms: My [facility] Skilled Items Patient informed of condition?: Yes DNR: No Discharge Level of Care: Other Communicable Disease: No Discharge Prognosis: Deteriorating Lines: Peripheral IV Urinary Catheter: No Medications and DC Order Prescriptions: Continued nicotine [Nicoderm CQ] 21 mg/24 hr Patch 24 Hour 1 patch TRANSDERMAL DAILY RF: 0 atorvastatin [Lipitor] 80 mg Tablet 80 mg PO QAM RF: 0 glipizide 10 mg Tablet 5 mg PO QAM RF: 0 metformin 850 mg Tablet 850 mg PO BID RF: 0 aspirin [Aspirin Low Dose] 81 mg Tablet,Delayed Release (Dr/Ec) 81 mg PO QAM RF: 0 citalopram [Celexa] 20 mg Tablet 20 mg PO QAM RF: 0 gabapentin 100 mg Capsule 100 - 200 mg PO TID RF: 0 lisinopril 40 mg Tablet 40 mg PO QAM RF: 0 cholecalciferol (vitamin D3) [Vitamin D3] 1,000 unit Capsule 2,000 unit PO QAM RF: 0 quetiapine [Seroquel] 50 mg Tablet 50 mg PO HS RF: 0 Advair HFA 115-21 mcg/actuation HFA aerosol inhaler 1 puff INHALATION BID RF: 0 Discharge Orders: Discharge Order (Routine); Ordered 10/14/20 Ordered By: Ian Egan Admission Data Admit Date/Time: 10/14/20 16:01 Attending Provider: Ian Egan Admit Provider: Ian Egan Primary Care Provider: Ade Moctezuma Other Providers: Desmond Raya ; Ian Egan ; Cristina Bautista Supervising Physician Co-Signing Physician Notes Patient is a 55-year-old female with history of diabetes, COPD, bipolar disorder and other medical problems presents with history of altered mental status, generalized weakness. Poor historian. Most of the history is obtained from old records, ER physician, patient's family and primary care physician. Patient was oriented to herself, place, year, home address and date of during my encounter. Please review HPI for complete details of presentation. CT head showed no acute intracranial abnormality. Patient was noted to have mild leukocytosis, chronic anemia, hyperkalemia at 8.1, SHAWNA 5.68, normal procalcitonin, lactate levels, metabolic acidosis with bicarbonate levels 14. UA suggestive of possible UTI. Chest x-ray showed bilateral opacities which could reflect infectious process or atelectasis. Patient admits to have intermittent confusion. On exam patient is disheveled, no apparent distress, normocephalic atraumatic, lungs are clear to auscultation, dry oral mucosa, EOMI, S1-S2,+ systolic murmur, no pedal edema, bilateral upper extremity deformities--congenital as per patient, grossly no focal neurologic deficits. Patient is admitted for management of acute metabolic encephalopathy, hyperkalemia, acute kidney injury, metabolic acidosis, urinary tract infection. Discussed with american sign language interpreter on-call and plan to be admitted in ICU. Received insulin, glucose, calcium gluconate, Kayexalate while in ED. Agree with aggressive IV fluids. Also agree with holding Metformin, lisinopril and avoid any nephrotoxic agents. Nephrology consulted for possible dialysis. Agree with starting Rocephin for possible UTI. Urine, blood cultures obtained. IV bicarbonate for severe metabolic acidosis. Monitor BMP closely every 6 hours. Further management as per the american sign language interpreter. I personally reviewed the record. Patient is interviewed and examined at bedside. Patient's care is coordinated with Margareth Steinberg PA-C. Please refer to the documentation above for details of patient's presentation and for discussion of other issues. Despite medical management, patient hyperkalemia, SHAWNA, metabolic acidosis has not significantly improved. On recommendations from american sign language interpreter, patient is transferred to [facility] for possible dialysis.
[2020-10-15] MEDS ORDERED: PNEUMOCOCCAL ADMINISTRATION CHARGE ONE (09:00)
[2020-10-15] MEDS ORDERED: PNEUMOCOCCAL POLYSACCHARIDES 25 MCG/0.5 ML VIAL/SYR IM ONE (09:00)
[2020-10-15] MEDS ORDERED: FLUTICASONE/VILANTEROL 100/25MCG 14 PUFFS/INHALER INH SCH (09:00)
[2020-10-15] MEDS ORDERED: CITALOPRAM 20 MG TAB PO SCH (09:00)
[2020-10-15] MEDS ORDERED: ASPIRIN 81 MG ECTAB PO SCH (09:00)
[2020-10-15] MEDS ORDERED: cefTRIAXone SODIUM 2,000 MG in DEXTROSE 5% 50 ML IV SCH (14:00)
== END 2020-10-15 01:19 | disposition short-term general hospital (02) | DRG 682 ==
LOC: ED 10:04 → 1E 16:01